=== PATIENT | female | born 2000 | race Caucasian/White ===

== ENCOUNTER 2022-09-30 09:48 | Observation (INO) ==
[2022-09-30] MEDS ORDERED: SODIUM CHLORIDE 0.9% 1000ML 1,000 ML IV SCH (10:00)
[2022-09-30] MEDS ORDERED: ONDANSETRON INJ 2 MG/ML 2 ML VIAL IV STA (10:46)
[2022-09-30] MEDS ORDERED: ACETAMINOPHEN 500 MG TAB PO STA (10:46)
--- NOTE | 2022-09-30 10:46 | Emergency Department Note ---
Impression & Plan Syncope and collapse, Nausea, Vertigo ED Provider Note INFORMANT: Patient ED PROVIDER(S): Matthew Levine MD CHIEF COMPLAINT: Syncope PLAN: Disposition: Admitted Condition: Good Outpatient prescription management: none Referral: None MEDICAL DECISION MAKING: Patient presented because of multiple syncopal episodes. She had a prodrome prior to the first 1. She did strike her head. Patient notes that dizziness/vertigo started after. Patient had a moderate headache. She had no open wounds. She suffered no other significant injury. Benign C-spine examination. Patient's neurologic examination did not reveal any focal findings. She had some slight lateral nystagmus but no vertical or rotatory nystagmus. Patient was hydrated. She was given Tylenol and Zofran. She did feel better with this. Nausea resolved. Patient was still having problems with dizziness. CT imaging of the head was negative. She was treated with meclizine and then treated with diazepam. She was still feeling dizziness at that time I discussed further imaging. Patient underwent MR imaging which did not reveal any evidence of acute stroke or other abnormality. Patient was given a dose of lorazepam as she was still feeling quite dizzy. Despite receiving that medication she was still unsteady and could not safely ambulate. Despite multiple hours in the ER and reassessments patient is still symptomatic. It seems that she may have a concussion from her syncopal episode and is now dealing with vertigo. Further management in the hospital will be necessary. Consultation was made with the [facility] service. Discussed the case with Dr. Martinez. Patient was evaluated in the ER and admitted for further management Discussed with assistant front end manager After review of the information above and other included data, I feel the patient requires admission. Triage Nursing notes reviewed and agree them. Vital Signs: reviewed and remarkable for no significant abnormalities. Orthostatic testing negative. Prior /Outside records reviewed: none Differential diagnosis: Vasovagal event, dehydration, infection, hypoglycemia, electrolyte a bnormalities, cardiac sources, intracerebral event, pulmonary embolism, seizure, toxicologic, neurologic, as well as other pathologies. Diagnostics, as interpreted by me: EC Lead ECG performed and revealed Normal sinus rhythm at 64, normal [place], QRS low voltage. No elevation or depression. No PACs or PVCs Cardiac Monitoring: Cardiac monitoring ordered by me: The patient was placed on continuous cardiac monitoring and observed. It revealed a normal sinus rhythm at 88 beats per minute without ectopy or evidence of dysrhythmia. Medical decision rules: none Imaging studies: CT and MRI as noted above. I refer you to the EMR for further details. HPI: The patient is a 22 year old female who presents to the Emergency Room with complaints of passing out. This started this morning and is described as three episodes. Patient did have feelings of dizziness and flushed. The patient also notes the following associated symptoms, sore throat. The patient has taken no medication for relieving factors. Current pain is rated as 7/10. Patient did hit her head when she passed out. Pt denies prior headache, fevers, chills, diaphoresis, visual changes, neck pain, chest pain, breathing difficulties, nausea, vomiting, abdominal pain, back pain, melena, hematochezia, urinary symptoms, numbness, weakness, lymphadenopathy, rash, or other complaints. PAST MEDICAL HISTORY: See Below, denies PAST SURGICAL HISTORY: See Below, denies SOCIAL HISTORY: See Below, occasional ETOH HOME MEDICATIONS: See Below ALLERGIES: See Below VITALS: See Below PHYSICAL EXAMINATION: GENERAL: Awake, alert, well-appearing, in no distress HENT: Normocephalic, atraumatic. Oropharynx unremarkable. EYES: Normal conjunctiva. Sclera non-icteric. PERRL. NECK: Inspection normal. Non-tender. Supple. No nuchal rigidity. FROM. No masses. RESPIRATORY: Clear to auscultation. No wheezes. No rales. Normal respiratory effort. CARDIAC: Normal rate. Normal rhythm. No murmurs. No rubs. Extremities warm and well perfused. Pulses equal. No JVD. GI: Soft, non-distended. No tenderness to palpation. No rebound or guarding. No masses. RECTAL: Deferred. MUSCULOSKELETAL: Atraumatic. Chest examination reveals no tenderness. The back is symmetrical on inspection without obvious abnormality. There is no CVA tenderness to palpation. No joint edema. LOWER EXTREMITIES: Calves are equal size bilaterally and non-tender. No edema. No discoloration. NEURO: Normal sensorium. No sensory or motor deficits noted. SKIN: No rash or jaundice noted. OBSERVATION NOTE: The patient was placed in observation status at 1400 hrs. Reason: Vertigo, head injury and syncope. During the time in observation, the patient was frequently reassessed and received cardiac monitoring, IV and oral medications. On Final reassessment the patient is still symptomatic and cannot ambulate safely. Further management in the hospital will be necessary. The patient will be admit franco at 1745. A total observation time of 3 hours and 45 minutes . Past Med/Surg History Social History Smoking Status: Never smoker Preferred Language: Cameroonian Feels Safe at Home: Yes Allergies Allergies Allergy/AdvReac Type Severity Reaction Status Date / Time No Known Allergies Allergy Verified 09/30/22 15:49 Home Meds Home Medications Medication Instructions Recorded Confirmed No Known Home Medications 09/30/22 09/30/22 Results & Data (ED) Vital Signs Vital Signs - 24 hr 09/30/22 09:52 09/30/22 10:12 09/30/22 10:40 Temperature 36.6 C Temperature Source Temporal Artery Scan Pulse Rate - Lying Pulse Rate - Sitting Pulse Rate - Standing Pulse Rate 84 66 Pulse Rate [Left Finger] 71 Pulse Rate from SpO2 Sensor Pulse Rhythm [Left Finger] Regular Respiratory Rate 18 16 Respiratory Effort / Characteristics Non-Labored Spontaneous Non-Labored Labored Respiratory Depth Normal Normal Respiratory Pattern Regular Blood Pressure - Lying Blood Pressure - Sitting Blood Pressure- Standing Blood Pressure 133/96 Blood Pressure [Right Arm] 128/74 Blood Pressure Mean 108 Blood Pressure Mean [Right Arm] 92 Blood Pressure Position Sitting Blood Pressure Position [Right Arm] Lying Pulse Oximetry 97 100 Oxygen Delivery Method Room Air Room Air Sepsis Recent Fever Within 48 Hours No Sepsis New/Unexplained Change in Mental Status No Sepsis Action Taken by Nursing No Action Required 09/30/22 10:40 09/30/22 10:04 09/30/22 10:05 Temperature Temperature Source Pulse Rate - Lying 71 Pulse Rate - Sitting 75 Pulse Rate - Standing 80 Pulse Rate 73 Pulse Rate [Left Finger] Pulse Rate from SpO2 Sensor 69 Pulse Rhythm [Left Finger] Respiratory Rate 15 Respiratory Effort / Characteristics Respiratory Depth Respiratory Pattern Blood Pressure - Lying 128/74 Blood Pressure - Sitting 121/93 Blood Pressure- Standing 130/87 Blood Pressure 119/75 Blood Pressure [Right Arm] Blood Pressure Mean 89 Blood Pressure Mean [Right Arm] Blood Pressure Position Blood Pressure Position [Right Arm] Pulse Oximetry 99 Oxygen Delivery Method Sepsis Recent Fever Within 48 Hours Sepsis New/Unexplained Change in Mental Status Sepsis Action Taken by Nursing 09/30/22 10:30 09/30/22 10:35 09/30/22 10:35 Temperature Temperature Source Pulse Rate - Lying Pulse Rate - Sitting Pulse Rate - Standing Pulse Rate 76 100 H Pulse Rate [Left Finger] Pulse Rate from SpO2 Sensor Pulse Rhythm [Left Finger] Respiratory Rate 17 18 Respiratory Effort / Characteristics Respiratory Depth Respiratory Pattern Blood Pressure - Lying Blood Pressure - Sitting Blood Pressure- Standing Blood Pressure 128/74 Blood Pressure [Right Arm] Blood Pressure Mean 95 Blood Pressure Mean [Right Arm] Blood Pressure Position Blood Pressure Position [Right Arm] Pulse Oximetry 98 Oxygen Delivery Method Sepsis Recent Fever Within 48 Hours Sepsis New/Unexplained Change in Mental Status Sepsis Action Taken by Nursing 09/30/22 10:36 09/30/22 10:36 09/30/22 11:29 Temperature Temperature Source Pulse Rate - Lying Pulse Rate - Sitting Pulse Rate - Standing Pulse Rate 63 Pulse Rate [Left Finger] Pulse Rate from SpO2 Sensor 67 Pulse Rhythm [Left Finger] Respiratory Rate 19 Respiratory Effort / Characteristics Respiratory Depth Respiratory Pattern Blood Pressure - Lying Blood Pressure - Sitting Blood Pressure- Standing Blood Pressure 130/87 125/75 Blood Pressure [Right Arm] Blood Pressure Mean 99 92 Blood Pressure Mean [Right Arm] Blood Pressure Position Blood Pressure Position [Right Arm] Pulse Oximetry 100 Oxygen Delivery Method Sepsis Recent Fever Within 48 Hours Sepsis New/Unexplained Change in Mental Status Sepsis Action Taken by Nursing 09/30/22 11:29 09/30/22 11:30 09/30/22 12:00 Temperature Temperature Source Pulse Rate - Lying Pulse Rate - Sitting Pulse Rate - Standing Pulse Rate 65 67 Pulse Rate [Left Finger] Pulse Rate from SpO2 Sensor 65 67 Pulse Rhythm [Left Finger] Respiratory Rate 15 13 Respiratory Effort / Characteristics Respiratory Depth Respiratory Pattern Blood Pressure - Lying Blood Pressure - Sitting Blood Pressure- Standing Blood Pressure 121/74 Blood Pressure [Right Arm] Blood Pressure Mean 82 Blood Pressure Mean [Right Arm] Blood Pressure Position Blood Pressure Position [Right Arm] Pulse Oximetry 100 100 Oxygen Delivery Method Sepsis Recent Fever Within 48 Hours Sepsis New/Unexplained Change in Mental Status Sepsis Action Taken by Nursing 09/30/22 12:00 09/30/22 14:13 09/30/22 14:00 Temperature Temperature Source Pulse Rate - Lying Pulse Rate - Sitting Pulse Rate - Standing Pulse Rate 76 72 Pulse Rate [Left Finger] 88 Pulse Rate from SpO2 Sensor 72 Pulse Rhythm [Left Finger] Respiratory Rate 22 18 Respiratory Effort / Characteristics Respiratory Depth Respiratory Pattern Blood Pressure - Lying Blood Pressure - Sitting Blood Pressure- Standing Blood Pressure Blood Pressure [Right Arm] 118/68 Blood Pressure Mean Blood Pressure Mean [Right Arm] 84 Blood Pressure Position Blood Pressure Position [Right Arm] Pulse Oximetry 100 98 Oxygen Delivery Method Room Air Sepsis Recent Fever Within 48 Hours Sepsis New/Unexplained Change in Mental Status Sepsis Action Taken by Nursing 09/30/22 15:49 Temperature Temperature Source Pulse Rate - Lying Pulse Rate - Sitting Pulse Rate - Standing Pulse Rate Pulse Rate [Left Finger] 88 Pulse Rate from SpO2 Sensor Pulse Rhythm [Left Finger] Respiratory Rate 14 Respiratory Effort / Characteristics Respiratory Depth Respiratory Pattern Blood Pressure - Lying Blood Pressure - Sitting Blood Pressure- Standing Blood Pressure Blood Pressure [Right Arm] 116/69 Blood Pressure Mean Blood Pressure Mean [Right Arm] 84 Blood Pressure Position Blood Pressure Position [Right Arm] Pulse Oximetry 100 Oxygen Delivery Method Room Air Sepsis Recent Fever Within 48 Hours Sepsis New/Unexplained Change in Mental Status Sepsis Action Taken by Nursing Laboratory Data 09/30/22 10:20 09/30/22 10:20 Lab Results 09/30/22 09/30/22 09/30/22 Range/Units 10:20 10:20 10:20 WBC 8.24 (4.8-10.8) K/ul RBC 4.94 (4.20-5.40) M/uL Hgb 15.2 (12.0-16.0) g/dl Hct 44.3 (37.0-47.0) % MCV 89.7 (80.0-100.0) fL MCH 30.8 (25.0-34.0) pg MCHC 34.3 (32.0-36.0) g/dL RDW Std Deviation 39.6 (36.4-46.3) fL RDW Coeff of Evangelista 12.1 (11.5-14.5) % Plt Count 200 (130-400) K/uL MPV 10.5 (9.4-12.4) fL Immature Gran % (Auto) 0.2 % Neut % (Auto) 70.7 % Lymph % (Auto) 22.8 % [place] % (Auto) 5.3 % Eos % (Auto) 0.5 % Baso % (Auto) 0.5 % Neut # (Auto) 5.82 (1.40-6.50) K/uL Lymph # (Auto) 1.88 (1.2-3.4) K/uL [place] # (Auto) 0.44 (0.11-0.59) K/uL Eos # (Auto) 0.04 (0-0.50) K/uL Baso # (Auto) 0.04 (0-0.2) K/uL Immature Gran # (Auto) 0.02 (0.01-0.20) K/uL D-Dimer Cancelled Sodium 138 (136-145) mmol/L Potassium 4.1 (3.5-5.1) mmol/L Chloride 106 (98-107) mmol/L Carbon Dioxide 26 (21-32) mmol/L Anion Gap 6 (3-11) BUN 25 H (6-23) mg/dl Creatinine 0.89 (0.6-1.2) mg/dl Est Cr Clr Drug Dosing 95.6 ml/min Est GFR ( Amer) 105.1 ml/min Est GFR (Non-Af Amer) 90.7 ml/min BUN/Creatinine Ratio 28.1 H (10-20) Glucose 81 (70-99(Fasting)) mg/dl Calcium 9.7 (8.6-10.3) mg/dl Magnesium 2.0 (1.7-2.4) mg/dl Total Bilirubin 0.8 (0.2-1.0) mg/dl AST 16 (13-39) U/L ALT 15 (7-52) U/L Alkaline Phosphatase 59 (34-104) U/L Troponin I High Sens < 2.3 (0-14) pg/ml Total Protein 8.2 (6.0-8.3) gm/dl Albumin 5.1 H (3.4-5.0) gm/dl Globulin 3.1 (2.5-4.0) gm/dl Albumin/Globulin Ratio 1.6 (0.9-2) TSH (0.300-4.500) uIu/ml HCG, Qual (Negative) Urine Color Urine Appearance (Clear) Urine pH (4.5-7.5) Ur Specific [place] (1.000-1.030) Urine Protein (Negative) Urine Glucose (UA) (Negative) Urine Ketones (Negative) Urine Blood (Negative) Urine Nitrite (Negative) Urine Bilirubin (Negative) Urine Urobilinogen (Negative) Ur Leukocyte Esterase (Negative) SARS-CoV-2, RNA, NAAT (NEGATIVE) 09/30/22 09/30/2223 Range/Units 10:20 10:20 10:20 WBC (4.8-10.8) K/ul RBC (4.20-5.40) M/uL Hgb (12.0-16.0) g/dl Hct (37.0-47.0) % MCV (80.0-100.0) fL MCH (25.0-34.0) pg MCHC (32.0-36.0) g/dL RDW Std Deviation (36.4-46.3) fL RDW Coeff of Evangelista (11.5-14.5) % Plt Count (130-400) K/uL MPV (9.4-12.4) fL Immature Gran % (Auto) % Neut % (Auto) % Lymph % (Auto) % [place] % (Auto) % Eos % (Auto) % Baso % (Auto) % Neut # (Auto) (1.40-6.50) K/uL Lymph # (Auto) (1.2-3.4) K/uL [place] # (Auto) (0.11-0.59) K/uL Eos # (Auto) (0-0.50) K/uL Baso # (Auto) (0-0.2) K/uL Immature Gran # (Auto) (0.01-0.20) K/uL D-Dimer Sodium (136-145) mmol/L Potassium (3.5-5.1) mmol/L Chloride (98-107) mmol/L Carbon Dioxide (21-32) mmol/L Anion Gap (3-11) BUN (6-23) mg/dl Creatinine (0.6-1.2) mg/dl Est Cr Clr Drug Dosing ml/min Est GFR ( Amer) ml/min Est GFR (Non-Af Amer) ml/min BUN/Creatinine Ratio (10-20) Glucose (70-99(Fasting)) mg/dl Calcium (8.6-10.3) mg/dl Magnesium (1.7-2.4) mg/dl Total Bilirubin (0.2-1.0) mg/dl AST (13-39) U/L ALT (7-52) U/L Alkaline Phosphatase (34-104) U/L Troponin I High Sens (0-14) pg/ml Total Protein (6.0-8.3) gm/dl Albumin (3.4-5.0) gm/dl Globulin (2.5-4.0) gm/dl Albumin/Globulin Ratio (0.9-2) TSH 3.309 (0.300-4.500) uIu/ml HCG, Qual Negative (Negative) Urine Color Yellow Urine Appearance Clear (Clear) Urine pH 5.5 (4.5-7.5) Ur Specific [place] 1.015 (1.000-1.030) Urine Protein Negative (Negative) Urine Glucose (UA) Negative (Negative) Urine Ketones Negative (Negative) Urine Blood Negative (Negative) Urine Nitrite Negative (Negative) Urine Bilirubin Negative (Negative) Urine Urobilinogen Negative (Negative) Ur Leukocyte Esterase Negative (Negative) SARS-CoV-2, RNA, NAAT (NEGATIVE) 09/30/22 09/30/22 Range/Units 11:48 17:18 WBC (4.8-10.8) K/ul RBC (4.20-5.40) M/uL Hgb (12.0-16.0) g/dl Hct (37.0-47.0) % MCV (80.0-100.0) fL MCH (25.0-34.0) pg MCHC (32.0-36.0) g/dL RDW Std Deviation (36.4-46.3) fL RDW Coeff of Evangelista (11.5-14.5) % Plt Count (130-400) K/uL MPV (9.4-12.4) fL Immature Gran % (Auto) % Neut % (Auto) % Lymph % (Auto) % [place] % (Auto) % Eos % (Auto) % Baso % (Auto) % Neut # (Auto) (1.40-6.50) K/uL Lymph # (Auto) (1.2-3.4) K/uL [place] # (Auto) (0.11-0.59) K/uL Eos # (Auto) (0-0.50) K/uL Baso # (Auto) (0-0.2) K/uL Immature Gran # (Auto) (0.01-0.20) K/uL D-Dimer 260 Sodium (136-145) mmol/L Potassium (3.5-5.1) mmol/L Chloride (98-107) mmol/L Carbon Dioxide (21-32) mmol/L Anion Gap (3-11) BUN (6-23) mg/dl Creatinine (0.6-1.2) mg/dl Est Cr Clr Drug Dosing ml/min Est GFR ( Amer) ml/min Est GFR (Non-Af Amer) ml/min BUN/Creatinine Ratio (10-20) Glucose (70-99(Fasting)) mg/dl Calcium (8.6-10.3) mg/dl Magnesium (1.7-2.4) mg/dl Total Bilirubin (0.2-1.0) mg/dl AST (13-39) U/L ALT (7-52) U/L Alkaline Phosphatase (34-104) U/L Troponin I High Sens (0-14) pg/ml Total Protein (6.0-8.3) gm/dl Albumin (3.4-5.0) gm/dl Globulin (2.5-4.0) gm/dl Albumin/Globulin Ratio (0.9-2) TSH (0.300-4.500) uIu/ml HCG, Qual (Negative) Urine Color Urine Appearance (Clear) Urine pH (4.5-7.5) Ur Specific [place] (1.000-1.030) Urine Protein (Negative) Urine Glucose (UA) (Negative) Urine Ketones (Negative) Urine Blood (Negative) Urine Nitrite (Negative) Urine Bilirubin (Negative) Urine Urobilinogen (Negative) Ur Leukocyte Esterase (Negative) SARS-CoV-2, RNA, NAAT NEGATIVE (NEGATIVE) Administered Medications Discontinued Medications Acetaminophen (Acetaminophen 500 Mg Tab) 1,000 mg PO NOW STA Stop: 09/30/22 10:47 Last Admin: 09/30/22 10:54 Dose: 1,000 mg Documented By: ABEL Diazepam (Diazepam 5 Mg/Ml Inj 10ml Vial) 2.5 mg IV NOW STA Stop: 09/30/22 14:09 Last Admin: 09/30/22 14:19 Dose: 2.5 mg Documented By: ABEL Sodium Chloride (Nss 1000ml) 1,000 mls @ 999 mls/hr IV .Q1H1M KENDRA Stop: 09/30/22 11:00 Last Infusion: 09/30/22 11:28 Dose: 0 mls/hr Documented By: Admin: 09/30/22 10:23 Dose: 999 mls/hr Documented By: ABEL Lorazepam (Lorazepam 2 Mg/1 Ml Vial) 0.5 mg IV NOW STA Stop: 09/30/22 16:02 Last Admin: 09/30/22 16:09 Dose: 0.5 mg Documented By: Meclizine HCl (Meclizine Hcl 25 Mg Tab) 25 mg PO NOW STA Stop: 09/30/22 13:45 Last Admin: 09/30/22 14:19 Dose: 25 mg Documented By: ABEL Ondansetron HCl (Ondansetron Inj 2 Mg/Ml 2 Ml Vial) 4 mg IV NOW STA Stop: 09/30/22 10:47 Last Admin: 09/30/22 10:54 Dose: 4 mg Documented By: ABEL Imaging Data Radiologist's Impression: Head CT 09/30/22 10:[address] DOSE: 547.75 mGy.cm HISTORY: Posterior head injury. fall, CHI, Syncope TECHNIQUE: Multiaxial CT images of the head were performed without the use of intravenous contrast. Automated exposure control was utilized for this study. A dose lowering technique was utilized adhering to the principles of ALARA. Comparison: None. Findings: The paranasal sinuses and mastoid air cells are clear. The calvarium and skull base are intact. The ventricles and sulci are within normal limits. There is no mass, hematoma, midline shift, or acute infarct. Impression: No acute intracranial abnormality. ACT 112: Negative or not required by law. Electronically signed by: Duc Corcoran M.D. 09/30/2022 11:16 AM Brain MRI 09/30/22 13:44 MRI OF THE BRAIN WITHOUT CONTRAST CLINICAL HISTORY: Syncope. Severe vertigo. COMPARISON STUDY: Head CT performed earlier today. TECHNIQUE: Utilizing a 1.5 Nicole magnet and dedicated coil, multiplanar, multiecho imaging of the brain was performed without IV contrast. FINDINGS: This study is mildly compromised by motion artifact. No acute intracranial hemorrhage, midline shift or mass effect is present. Ventricular system is normal. Basal cisterns are patent. There are no extraaxial collections. Flow-voids for the major intracranial vessels are present. Diffusion-weighted sequence is compromised by motion artifact however there are no foci of restricted diffusion to suggest acute infarct. The basal cisterns are patent. There are no extra-axial collections. No intracranial masses are identified on this unenhanced exam. No definite parenchymal signal abnormality is present. IMPRESSION: Exam mildly compromised by motion artifact. No acute intracranial findings. Unremarkable unenhanced MRI of the brain. ACT 112: Negative or not required by law. Electronically signed by: Willis Downing M.D. 09/30/2022 3:53 PM Discharge Plan Visit Data Chief Complaint: Syncope Stated Complaint: SINCE 730 PASSOUT 3 TIMES, CHEST TIGHTNESS ED Provider: Matthew Levine Discharge Problem: Syncope and collapse, Nausea, Vertigo Forms Stand Alone Forms: [employer] [facility] Prescriptions Prescriptions: No Action No Known Home Medications Referrals Referrals: PCP,NO [Primary Care Provider] -
[2022-09-30 10:57] LABS: Appearance Urine Clear (Clear); Bilirubin Urine Negative (Negative); Blood Urine Negative (Negative); Color Urine Yellow; Glucose Urine UA Negative (Negative); Ketones Urine Negative (Negative); Leukocyte Esterase Urine Negative (Negative); Nitrite Urine Negative (Negative); Protein Urine Negative (Negative); Specific Gravity Urine 1.015 (1.000-1.030); Urobilinogen Urine Negative (Negative); pH Urine 5.5 (4.5-7.5)
[2022-09-30 11:06] LABS: Basophils # (auto) 0.04 K/uL (0-0.2); Basophils % (auto) 0.5 %; Eosinophils # (auto) 0.04 K/uL (0-0.50); Eosinophils % (auto) 0.5 %; Hematocrit (blood only) 44.3 % (37.0-47.0); Hemoglobin 15.2 g/dl (12.0-16.0); Immature Granulocytes # (auto) 0.02 K/uL (0.01-0.20); Immature Granulocytes % (auto) 0.2 %; Lymphocytes # (auto) 1.88 K/uL (1.2-3.4); Lymphocytes % (auto) 22.8 %; Mean Corpuscular Hemoglobin 30.8 pg (25.0-34.0); Mean Corpuscular Hgb Conc 34.3 g/dL (32.0-36.0); Mean Corpuscular Volume 89.7 fL (80.0-100.0); Mean Platelet Volume 10.5 fL (9.4-12.4); Monocytes # (auto) 0.44 K/uL (0.11-0.59); Monocytes % (auto) 5.3 %; Neutrophils # (auto) 5.82 K/uL (1.40-6.50); Neutrophils % (auto) 70.7 %; Platelet Count 200 K/uL (130-400); RDW Coefficient of Variation 12.1 % (11.5-14.5); RDW Standard Deviation 39.6 fL (36.4-46.3); Red Blood Count 4.94 M/uL (4.20-5.40); White Blood Count 8.24 K/ul (4.8-10.8)
[2022-09-30 11:13] LABS: Pregnancy Test, Serum Negative (Negative)
[2022-09-30 11:14] LABS: Alanine Aminotransferase 15 U/L (7-52); Albumin Globulin Ratio 1.6 (0.9-2); Albumin Level 5.1 gm/dl (3.4-5.0); Alkaline Phosphatase 59 U/L (34-104); Anion Gap 6 (3-11); Aspartate Aminotransferase 16 U/L (13-39); BUN Creatinine Ratio 28.1 (10-20); Bilirubin,Total 0.8 mg/dl (0.2-1.0); Blood Urea Nitrogen 25 mg/dl (6-23); Calcium 9.7 mg/dl (8.6-10.3); Carbon Dioxide 26 mmol/L (21-32); Chloride 106 mmol/L (98-107); Creatinine Clr Calc Pharmacy 95.6 ml/min; Est GFR (African American) 105.1 ml/min; Est GFR (Non-African American) 90.7 ml/min; Globulin 3.1 gm/dl (2.5-4.0); Glucose 81 mg/dl (70-99(Fasting)); Potassium 4.1 mmol/L (3.5-5.1); Sodium 138 mmol/L (136-145); Total Protein 8.2 gm/dl (6.0-8.3)
[2022-09-30 11:19] LABS: Troponin I High Sensitivity < 2.3 pg/ml (0-14)
--- NOTE | 2022-09-30 11:19 | CT Scan Report ---
HEAD CT NONCONTRAST CT DOSE: 547.75 mGy.cm HISTORY: Posterior head injury. fall, CHI, Syncope TECHNIQUE: Multiaxial CT images of the head were performed without the use of intravenous contrast. A utomated exposure control was utilized for this study. A dose lowering technique was utilized adheri ng to the principles of ALARA. Comparison: None. Findings: The paranasal sinuses and mastoid air cells are clear. The calvarium and skull base are int act. The ventricles and sulci are within normal limits. There is no mass, hematoma, midline shift, or acute infarct. Impression: No acute intracranial abnormality. ACT 112: Negative or not required by law. Electronically signed by: Duc Corcoran M.D. 09/30/2022 11:16 AM
[2022-09-30 12:29] LABS: D Dimer 260 ug/L FEU (0-500)
[2022-09-30] MEDS ORDERED: MECLIZINE HCL 25 MG TAB PO STA (13:44)
--- NOTE | 2022-09-30 15:55 | Magnetic Resonance Report ---
MRI OF THE BRAIN WITHOUT CONTRAST CLINICAL HISTORY: Syncope. Severe vertigo. COMPARISON STUDY: Head CT performed earlier today. TECHNIQUE: Utilizing a 1.5 Nicole magnet and dedicated coil, multiplanar, multiecho imaging of the bra in was performed without IV contrast. FINDINGS: This study is mildly compromised by motion artifact. No acute intracranial hemorrhage, midl ine shift or mass effect is present. Ventricular system is normal. Basal cisterns are patent. There a re no extraaxial collections. Flow-voids for the major intracranial vessels are present. Diffusion-we ighted sequence is compromised by motion artifact however there are no foci of restricted diffusion t o suggest acute infarct. The basal cisterns are patent. There are no extra-axial collections. No intr acranial masses are identified on this unenhanced exam. No definite parenchymal signal abnormality is present. IMPRESSION: Exam mildly compromised by motion artifact. No acute intracranial findings. Unremarkable unenhanced MRI of the brain. ACT 112: Negative or not required by law. Electronically signed by: Willis Downing M.D. 09/30/2022 3:53 PM
[2022-09-30] MEDS ORDERED: LORazepam 2 MG/1 ML VIAL IV STA (16:01)
--- NOTE | 2022-09-30 19:07 | History & Physical Report ---
Date of Service September 30, 2022 Assessment & Plan (1) Syncope and collapse: Plan: The patient had a cluster of 3 brief episodes of syncope this am over a short period of time (~ 1 hour). Each episode had prodromal symptoms including dizziness, lightheadedness, and feeling weak. There was no seizure activity by report. Following each episode she had return of consciousness quickly. BUN on labs is elevated suggestive of volume depletion. She has a likely URI which may have compounded the circumstances. However, it is concerning that the patient has had chest tightness during aerobic activities in the past. Further, the patient's mother suddenly at age 36 and her autopsy suggested she from arrhythmia. Apparently her mother had had episodes of syncope before her sudden cardiac . Lorin reports that she was told in [place], [place], that her mother's arrhythmia was not hereditary in nature. Lorin and her 2 brothers received testing every ~2 years to monitor her cardiac status. She cannot remember if she ever had an echo earlier in life. Plan - * repeat EKG in am * telemetry * hydrate with isotonic fluids overnight * echocardiogram * consider cardiology consultation Fortunately Lorin's EKG shows normal QTc. She does have an inverted T wave in V2 but this may represent normal variation. Consider outpatient cardiac monitoring due to her mother's history? (2) Head injury: Plan: Following her first syncopal event Lorin struck her head on a desk. The impact was over the occiput. She has had tunnel vision, ataxia, vertigo, and nausea since the head injury. Symptoms are likely consistent with a concussion. Advise private room, plenty of rest, copious hydration, avoid loud noise and bright lights, restrict reading/TV/any device, etc. Fortunately both her head CT and MRI brain are both normal. Tylenol prn pain. Meclizine for vertigo. Could consider MRA head & Neck to r/o aneurysm, etc in light of syncope to be complete. (3) Acute onset of severe vertigo: Plan: Occurred after her head injury this am. Likely due to a concussion/TBI. Doubt viral induced peripheral vertigo. Schedule meclizine 12.5mg TID. Consider PT consultation tomorrow depending on how she is doing. (4) URI (upper respiratory infection): Plan: 24 hours of URI symptoms. Repeated a COVID/flu/RSV - fully negative. Symptomatic care. (5) Ataxia: Plan: 2nd to head injury. Fall precautions. Consider PT consultation. MRI brain and head CT without acute pathology, stroke, etc. (6) Concussion: Plan: s/p head injury early this am with multiple neurological symptoms since that time. See discussion above. (7) Family history of early sudden : Plan: Mother, age 36 from arrhythmia based on autopsy. Maternal uncle had a pacemaker and in his 40s - also suspected to be cardiac in nature. See discussion above. Echocardiogram ordered. EKG in am. Telemetry. Consider exercise stress test in future? Consider cardiology consultation. History of Present Illness Chief Complaint: passing out, head injury, difficulty walking Primary Care Provider: NO PCP 22yo female with history of asthma presents from her home in [place] with multiple episodes of passing out. Patient reports that yesterday she noted she had mild sore throat, nasal congestion, and chills. 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 She reports she was sitting in a chair and suddenly felt unwell. A co-worker noticed she did not look good and she told her co-worker she felt dizzy and lightheaded. Lorin stood up, continued to feel dizzy/lightheaded, and passed out for a few seconds. During that event she hit her head on the desk at which she was sitting. She hit the back of her head. This event took place about 730am today. After the first syncopal episode she had nausea, she had "tunnel vision," and felt unsteady. A co-worker drove her home. About 815 she had a 2nd syncopal episode. Again she felt dizzy & lightheaded and proceeded to pass out. She woke up on the floor of her apartment. She then had a 3rd syncopal episode about 10 minutes later. Prior to the 3rd event she had prodromal dizziness. At home she developed vertigo with movements. Denies having any visual field cut. Denies any blurry vision. She has had a headache. After the 3rd episode a friend brought her to [facility] for evaluation. Orthostatic BPs were wnl here. Last meal - breakfast before work this am; a hamburger about 2 hours prior to my assessment. Per the emergency room attending attempts were made to have Lorin walk and she had significant ataxia. She states she felt like she was going to fall to her left. She continues with vertigo with any movement although this is a little better since receiving the meds as listed below. 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 Allergies Allergy/AdvReac Type Severity Reaction Status Date / Time No Known Allergies Allergy Verified 09/30/22 15:49 Home Medications Medication Instructions Recorded Confirmed Type No Known Home Medications 09/30/22 09/30/22 History Past Med/Surg History Medical History (Updated 09/30/22 @ 22:21 by Gómez Martinez MD) Achilles tendon injury large cut to the achilles requiring surgery; right side Asthma Surgical History (Updated 09/30/22 @ 22:10 by Gómez Martinez MD) Hx of external ear surgery pinning / repositioning b/l ears Family History (Updated 09/30/22 @ 22:13 by Gómez Martinez MD) Mother , age 36; autopsy suggested arrhythmia as cause of Sudden cardiac Uncle , Maternal uncle; age 45; had pacemaker, then from arrhythmia? 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 Feels Safe at Home: Yes Safety Concerns: Feels Safe At This Time Do you think of yourself as: straight/heterosexual Sexual Activity: has been sexually active within the last 12 months Assistive Devices: None Review of Systems Review of Systems: gen - no fevers; chills yesterday; poor appetite today; no recent weight loss eyes - "tunnel vision" following her head injury; no blurry vision; no visual field cuts HENT - sore throat with nasal congestion x 24 hours neck - denies pain; has pain on back of head where she hit her head CV - patient reports having chest tightness with swimming in college; was told it was due to anxiety?; no echocardiogram in college to her recollection; after her mother suddenly at age 36 from arrhythmia she & her 2 brothers were monitored every 2 years --- may have had echo then?? was told her mother's arrhythmia was not hereditary; has never passed out during exercise pulm - no dyspnea or GANDHI; no cough GI - nausea today following her head injury; no abd pain - LMP 3 weeks ago; no dysuria musculo - no body aches, no joint pains skin - no rash neuro - headache present since the head injury; no numbness or tingling of any limb; no motor weakness of any limb; ataxia since her head injury psych - some depression and anxiety Physical Exam Physical Exam: gen - lying comfortably in bed, awake, alert, good historian eyes - PERRLA, EOMI, 2 beats of lateral nystagmus with right-wood gaze; +photophobia head - modestly tender to palpation posterior occiput, mostly left of midline HENT - TMs clear b/l, nose clear, throat with mild erythema; MM dry neck - supple, shottly lymphadenopathy on left cervical region, no thyroidmegaly heart - RRR, s1 s2, no murmur/rub/gallop vascular - radial pulse 2+ b/l; DP and post tib pulses 2+ b/l lungs - CTA b/l abd - soft NT ND BS+; no HSM ext - no edema, pulses 2+ b/l neuro - strength 5/5 x 4 exts; CN 3-12 intact; DTRs 2+ b/l upper/lower exts; finger/nose/finger maneuver without ataxia; heel-ontiveros maneuver with mild ataxia; gait not tested skin - no rash psych - a/o x 3 Results & Data Results & Data Vital Signs (Past 12 Hours) Vital Signs Temp Pulse Pulse Resp BP BP Pulse Ox 09/30/22 15:49 88 14 116/69 100 09/30/22 14:00 88 18 118/68 98 09/30/22 14:13 72 09/30/22 12:00 76 22 100 09/30/22 12:00 121/74 09/30/22 11:30 67 13 100 09/30/22 11:29 65 15 100 09/30/22 11:29 125/75 09/30/22 10:36 63 19 100 09/30/22 10:36 130/87 09/30/22 10:35 100 H 18 98 09/30/22 10:35 128/74 09/30/22 10:30 76 17 09/30/22 10:05 73 15 99 09/30/22 10:04 119/75 09/30/22 10:40 71 16 128/74 100 09/30/22 10:12 66 09/30/22 09:52 36.6 C 84 18 133/96 97 O2 Del Method 09/30/22 15:49 Room Air 09/30/22 14:00 Room Air 09/30/22 14:13 09/30/22 12:00 09/30/22 12:00 09/30/22 11:30 09/30/22 11:29 09/30/22 11:29 09/30/22 10:36 09/30/22 10:36 09/30/22 10:35 09/30/22 10:35 09/30/22 10:30 09/30/22 10:05 09/30/22 10:04 09/30/22 10:40 Room Air 09/30/22 10:12 09/30/22 09:52 Room Air Laboratory Results Laboratory Results - last 24 hr 09/30/22 09/30/22 09/30/22 10:20 10:20 10:20 WBC 8.24 RBC 4.94 Hgb 15.2 Hct 44.3 MCV 89.7 MCH 30.8 MCHC 34.3 RDW Std Deviation 39.6 RDW Coeff of Evangelista 12.1 Plt Count 200 MPV 10.5 Immature Gran % (Auto) 0.2 Neut % (Auto) 70.7 Lymph % (Auto) 22.8 Bell % (Auto) 5.3 Eos % (Auto) 0.5 Baso % (Auto) 0.5 Neut # (Auto) 5.82 Lymph # (Auto) 1.88 Bell # (Auto) 0.44 Eos # (Auto) 0.04 Baso # (Auto) 0.04 Immature Gran # (Auto) 0.02 D-Dimer Cancelled Sodium 138 Potassium 4.1 Chloride 106 Carbon Dioxide 26 Anion Gap 6 BUN 25 H Creatinine 0.89 Est Cr Clr Drug Dosing 95.6 Est GFR ( Amer) 105.1 Est GFR (Non-Af Amer) 90.7 BUN/Creatinine Ratio 28.1 H Glucose 81 Calcium 9.7 Magnesium 2.0 Total Bilirubin 0.8 AST 16 ALT 15 Alkaline Phosphatase 59 Troponin I High Sens < 2.3 Total Protein 8.2 Albumin 5.1 H Globulin 3.1 Albumin/Globulin Ratio 1.6 TSH HCG, Qual Urine Color Urine Appearance Urine pH Ur Specific [place] Urine Protein Urine Glucose (UA) Urine Ketones Urine Blood Urine Nitrite Urine Bilirubin Urine Urobilinogen Ur Leukocyte Esterase SARS-CoV-2 (PCR) Influenza Type A (PCR) Influenza Type B (PCR) RSV (RT-PCR) SARS-CoV-2, RNA, NAAT 09/30/22 09/30/22 09/30/22 10:20 10:20 10:20 WBC RBC Hgb Hct MCV MCH MCHC RDW Std Deviation RDW Coeff of Evangelista Plt Count MPV Immature Gran % (Auto) Neut % (Auto) Lymph % (Auto) Bell % (Auto) Eos % (Auto) Baso % (Auto) Neut # (Auto) Lymph # (Auto) Bell # (Auto) Eos # (Auto) Baso # (Auto) Immature Gran # (Auto) D-Dimer Sodium Potassium Chloride Carbon Dioxide Anion Gap BUN Creatinine Est Cr Clr Drug Dosing Est GFR ( Amer) Est GFR (Non-Af Amer) BUN/Creatinine Ratio Glucose Calcium Magnesium Total Bilirubin AST ALT Alkaline Phosphatase Troponin I High Sens Total Protein Albumin Globulin Albumin/Globulin Ratio TSH 3.309 HCG, Qual Negative Urine Color Yellow Urine Appearance Clear Urine pH 5.5 Ur Specific [place] 1.015 Urine Protein Negative Urine Glucose (UA) Negative Urine Ketones Negative Urine Blood Negative Urine Nitrite Negative Urine Bilirubin Negative Urine Urobilinogen Negative Ur Leukocyte Esterase Negative SARS-CoV-2 (PCR) Influenza Type A (PCR) Influenza Type B (PCR) RSV (RT-PCR) SARS-CoV-2, RNA, NAAT 09/30/22 09/30/22 09/30/22 11:48 17:18 19:27 WBC RBC Hgb Hct MCV MCH MCHC RDW Std Deviation RDW Coeff of Evangelista Plt Count MPV Immature Gran % (Auto) Neut % (Auto) Lymph % (Auto) Bell % (Auto) Eos % (Auto) Baso % (Auto) Neut # (Auto) Lymph # (Auto) Bell # (Auto) Eos # (Auto) Baso # (Auto) Immature Gran # (Auto) D-Dimer 260 Sodium Potassium Chloride Carbon Dioxide Anion Gap BUN Creatinine Est Cr Clr Drug Dosing Est GFR ( Amer) Est GFR (Non-Af Amer) BUN/Creatinine Ratio Glucose Calcium Magnesium Total Bilirubin AST ALT Alkaline Phosphatase Troponin I High Sens Total Protein Albumin Globulin Albumin/Globulin Ratio TSH HCG, Qual Urine Color Urine Appearance Urine pH Ur Specific [place] Urine Protein Urine Glucose (UA) Urine Ketones Urine Blood Urine Nitrite Urine Bilirubin Urine Urobilinogen Ur Leukocyte Esterase SARS-CoV-2 (PCR) NEGATIVE Influenza Type A (PCR) Negative Influenza Type B (PCR) Negative RSV (RT-PCR) Negative SARS-CoV-2, RNA, NAAT NEGATIVE Diagnostic Findings Head CT 09/30/22 10:[address] DOSE: 547.75 mGy.cm HISTORY: Posterior head injury. fall, CHI, Syncope TECHNIQUE: Multiaxial CT images of the head were performed without the use of intravenous contrast. Automated exposure control was utilized for this study. A dose lowering technique was utilized adhering to the principles of ALARA. Comparison: None. Findings: The paranasal sinuses and mastoid air cells are clear. The calvarium and skull base are intact. The ventricles and sulci are within normal limits. There is no mass, hematoma, midline shift, or acute infarct. Impression: No acute intracranial abnormality. ACT 112: Negative or not required by law. Electronically signed by: Duc Corcoran M.D. 09/30/2022 11:16 AM Brain MRI 09/30/22 13:44 MRI OF THE BRAIN WITHOUT CONTRAST CLINICAL HISTORY: Syncope. Severe vertigo. COMPARISON STUDY: Head CT performed earlier today. TECHNIQUE: Utilizing a 1.5 Nicole magnet and dedicated coil, multiplanar, multiecho imaging of the brain was performed without IV contrast. FINDINGS: This study is mildly compromised by motion artifact. No acute intracranial hemorrhage, midline shift or mass effect is present. Ventricular system is normal. Basal cisterns are patent. There are no extraaxial collections. Flow-voids for the major intracranial vessels are present. Diffusion-weighted sequence is compromised by motion artifact however there are no foci of restricted diffusion to suggest acute infarct. The basal cisterns are patent. There are no extra-axial collections. No intracranial masses are identified on this unenhanced exam. No definite parenchymal signal abnormality is present. IMPRESSION: Exam mildly compromised by motion artifact. No acute intracranial findings. Unremarkable unenhanced MRI of the brain. ACT 112: Negative or not required by law. Electronically signed by: Willis Downing M.D. 09/30/2022 3:53 PM EKG -- my reading -- NSR, T wave inversion V2; early repol limb leads and anterior leads; QTc ~410msec PG Care Time/CCT Total # of Minutes Spent Total Time Spent with Patient: Total time spent is greater than 50% in coordination of care (as documented) at patient's floor/unit and/or counseling patient: Coding Level of Care Code 08084 INT INP/OBS CARE 2/55MIN Diagnoses Syncope and collapse R55 Head injury S09.90XA Acute onset of severe vertigo R42 URI (upper respiratory infection) J06.9 Ataxia R27.0 Concussion S06.0XAA Family history of early sudden Z84.89
[2022-09-30 20:54] LABS: Influenza A virus by PCR Negative (Neg); Influenza B virus by PCR Negative (Neg); RSV by PCR Negative (Neg); SARS CoV2 RNA(COVID-19) Ceph NEGATIVE (Negative)
[2022-09-30] MEDS ORDERED: NAPROXEN 250 MG TAB PO PRN (21:06)
[2022-09-30] MEDS ORDERED: ONDANSETRON INJ 2 MG/ML 2 ML VIAL IV PRN (21:06)
[2022-09-30] MEDS: MECLIZINE 12.5 MG TAB PO SCH (21:34)
[2022-09-30] MEDS: ACETAMINOPHEN 500 MG TAB PO PRN (21:35)
[2022-09-30] MEDS: D5W AND NSS 1,000 ML IV SCH (21:36)
[2022-10-01 06:50] LABS: BUN Creatinine Ratio 20.7 (10-20); Calcium 8.5 mg/dl (8.6-10.3); Creatinine Clr Calc Pharmacy 103.7 ml/min; Est GFR (African American) 116.1 ml/min; Est GFR (Non-African American) 100.2 ml/min; Potassium 3.9 mmol/L (3.5-5.1)
[2022-10-01] MEDS: D5W AND NSS 1,000 ML IV SCH ×2 (07:43→18:39)
[2022-10-01] MEDS: MECLIZINE 12.5 MG TAB PO SCH ×3 (07:44→21:06)
--- NOTE | 2022-10-01 10:17 | XCELERA ---
[id number]
--- NOTE | 2022-10-01 10:32 | Electrocardiogram Report ---
Test Reason : Blood Pressure : / mmHG Vent. Rate : 055 BPM Atrial Rate : 055 BPM P-R Int : 128 ms QRS Dur : 088 ms QT Int : 434 ms P-R-T Axes : 076 053 057 degrees QTc Int : 415 ms Sinus bradycardia with sinus arrhythmia Otherwise normal ECG When compared with ECG of 30-SEP-2022 10:03, No significant change was found Confirmed by Chang Metz ([id number]) on 10/01/2022 10:31:35 AM Referred By: REFERRED SELF Confirmed By:Chang Metz
[2022-10-01] MEDS: ACETAMINOPHEN 500 MG TAB PO PRN (11:54)
[2022-10-01] MEDS ORDERED: GADOBUTROL 65ML VIAL IV ONE (17:55)
--- NOTE | 2022-10-01 19:06 | Magnetic Resonance Report ---
Brain MRA HISTORY: recurrent syncope, eval aneurysm, etc TECHNIQUE: 3-D [id number] MRA of the brain was performed without contrast. COMPARISON STUDY: Brain MRI 09/30/2022. FINDINGS: Visualized intracranial internal carotid arteries, distal vertebral arteries, and basilar a rtery are widely patent. 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 IMPRESSION: No significant stenosis, occlusion, or aneurysm within the [place]. ACT 112: Negative or not required by law. Electronically signed by: Duc Corcoran M.D. 10/01/2022 7:04 PM
--- NOTE | 2022-10-01 19:09 | Magnetic Resonance Report ---
NECK MRA HISTORY: recurrent syncope, eval aneurysm etc TECHNIQUE: [id number] and gadolinium-enhanced MRA of the neck was performed both before and after the intravenous administration of contrast. All measurements were calculated based on NASCET criteri a. COMPARISON STUDY: None. FINDINGS: The aortic arch and proximal great vessels are widely patent. There is no significant sten osis, occlusion, or dissection identified within the bilateral common carotid, internal carotid, or v ertebral arteries. IMPRESSION: No significant stenosis, occlusion, or dissection identified within the carotid or vertebral arteries . ACT 112: Negative or not required by law. Electronically signed by: Duc Corcoran M.D. 10/01/2022 7:07 PM
--- NOTE | 2022-10-01 19:25 | Hospitalist Progress Note ---
Date of Service October 01, 2022 Assessment & Plan (1) Syncope and collapse: Plan: The patient had a cluster of 3 brief episodes of syncope AM of 09/30/22 over a short period of time (~ 1 hour). Each episode had prodromal symptoms including dizziness, lightheadedness, and f eeling weak. There was no seizure activity by report. Following each episode she had return of consciousness quickly. BUN on labs was elevated at admission suggestive of volume depletion. She also had come down with a URI about 24 hours prior to these events which may have compounded the circumstances. Echo today wnl. Repeat EKG today wnl. Tele overnight wnl. Hydration status improved clinically and biochemically on labs. Plan for outpatient 30-day event monitor as well as referral to EP - Dr Souza or Dr Casey. Also recommend outpatient exercise stress test (see below discussion). Cont IV fluids but reduce rate to 50cc/hr. Cont symptomatic care of concussion. Could consider neuro consult to be complete given her lingering symptoms. (2) Head injury: Plan: Following her first syncopal event Lorin struck her head on a desk. The impact was over the occiput. She has had tunnel vision, ataxia, vertigo, double vision, headache, nausea, and other symptoms since then. Symptoms are consistent with a severe concussion. Cont private room, plenty of rest, copious hydration, avoid loud noise and brig ht lights, restrict reading/TV/any device, etc. Fortunately both her head CT and MRI brain are both normal. MRA head/neck normal. Tylenol prn pain. Meclizine for vertigo. Recommend f/u with concussion clinic at [facility] for monitoring recovery post-discharge. (3) Acute onset of severe vertigo: Plan: Occurred after her head injury. Likely due to a concussion/TBI. Doubt viral induced peripheral vertigo. Cont scheduled meclizine 12.5mg TID. If symptoms are refractory increase to 25mg TID. PT eval appreciated. (4) URI (upper respiratory infection): Plan: 48 hours of URI symptoms. Repeated a COVID/flu/RSV - fully negative. Symptomatic care. (5) Ataxia: Plan: 2nd to head injury. Fall precautions. PT consultation. MRI brain and head CT without acute pathology, stroke, etc. MRA head/neck wnl. Consider neurology consult (6) Concussion: Plan: s/p head injury early with multiple neurological symptoms since that time. See discussion above. (7) Family history of early sudden : Plan: Mother, age 36 from arrhythmia based on autopsy. Maternal uncle had a pacemaker and in his 40s - also suspected to be cardi ac in nature. It is concerning that the patient has had chest tightness during aerobic activities in the past. Apparently her mother had had episodes of syncope before her sudden cardiac . Lorin reports that she was told in [place], that her mother's arrhythmia was not hereditary in nature? Lorin and her 2 brothers received testing every ~2 years to monitor her c ardiac status. She cannot remember if she ever had an echo earlier in life. Fortunately her echocardiogram here is normal. EKG is normal including QTc. Tele thus far normal. Spoke informally with cardiology --> plan: * outpatient EP referral to Dr Souza or Dr Casey * 30-day event monitor at discharge * strongly consider outpatient stress test - defer during this stay due to the severity of her concussion and likely the inability to complete an exercise stress Plan change OBS to full admit status Admission and Anticipated Discharge Date Admission Date: September 30, 2022 Subjective patient feels "about the same" as yesterday occasional double vision frontal headache remains NO NECK PAIN with any movement no visual field cuts occasional spinning but only lasts a few seconds main issue is that of walking - still ataxic continues with nasal congestion from URI but no cough appetite is good denies any focal motor weakness no vomiting Review of Systems Review of Systems: gen - just overall feels poorly; no fever cv - c/o chest tightness but attributes such to anxiety about what is going on; no orthopnea pulm - no dyspnea or GANDHI GI - occasional nausea but no emesis eyes - some double vision (horizontal images) but no visual field cuts; some photophobia neuro - ongoing ataxia, headache, etc Physical Exam Physical Exam: gen - lying comfortably in bed, awake, alert, looks better today eyes - PERRLA, EOMI (I don't see any palsy), -12 beats of lateral nystagmus with right-wood gaze; visual delgado full by direct confrontation HENT - throat with mild erythema; MMM neck - supple, full ROM without any pain/discomfort heart - RRR, s1 s2, no murmur/rub/gallop lungs - CTA b/l abd - soft NT ND BS+; no HSM ext - no edema, pulses 2+ b/l neuro - strength 5/5 x 4 exts; no facial droop; finger/nose/finger maneuver without ataxia; gait not tested psych - a/o x 3 Results & Data Results & Data Vital Signs (Past 12 Hours) Vital Signs Temp Pulse Pulse Pulse Resp BP Pulse Ox 10/01/22 16:46 80 10/01/22 15:14 37.1 C 78 103/63 98 10/01/22 11:11 37.3 C 78 16 104/66 97 10/01/22 07:39 56 L O2 Del Method 10/01/22 16:46 10/01/22 15:14 Room Air 10/01/22 11:11 Room Air 10/01/22 07:39 Laboratory Results Laboratory Results - last 24 hr 09/30/22 10/01/22 19:27 05:28 Sodium 140 Potassium 3.9 Chloride 112 H Carbon Dioxide 24 Anion Gap 4 BUN 17 Creatinine 0.82 Est Cr Clr Drug Dosing 103.7 Est GFR ( Amer) 116.1 Est GFR (Non-Af Amer) 100.2 BUN/Creatinine Ratio 20.7 H Glucose 85 Calcium 8.5 L SARS-CoV-2 (PCR) NEGATIVE Influenza Type A (PCR) Negative Influenza Type B (PCR) Negative RSV (RT-PCR) Negative Diagnostic Findings Head MRA 10/01/22 12:03 Brain MRA HISTORY: recurrent syncope, eval aneurysm, etc TECHNIQUE: 3-D [id number] MRA of the brain was performed without contrast. COMPARISON STUDY: Brain MRI 09/30/2022. FINDINGS: Visualized intracranial internal carotid arteries, distal vertebral arteries, and basilar artery are widely patent. There is no significant stenosis, occlusion, or aneurysm seen within the bilateral ACAs, MCAs, or steward/stewardess third. IMPRESSION: No significant stenosis, occlusion, or aneurysm within the nez perce of [place]. ACT 112: Negative or not required by law. Electronically signed by: Duc Corcoran M.D. 10/01/2022 7:04 PM Neck MRA 10/01/22 12:03 NECK MRA HISTORY: recurrent syncope, eval aneurysm etc TECHNIQUE: [id number] and gadolinium-enhanced MRA of the neck was performed both before and after the intravenous administration of contrast. All measurements were calculated based on NASCET criteria. COMPARISON STUDY: None. FINDINGS: The aortic arch and proximal great vessels are widely patent. There is no significant stenosis, occlusion, or dissection identified within the bi lateral common carotid, internal carotid, or vertebral arteries. IMPRESSION: No significant stenosis, occlusion, or dissection identified within the carotid or vertebral arteries. ACT 112: Negative or not required by law. Electronically signed by: Duc Corcoran M.D. 10/01/2022 7:07 PM Echocardiogram: EKG - my reading - NSR, no ST changes, QTc wnl PG Care Time/CCT Total # of Minutes Spent Total Time Spent with Patient: Total time spent is greater than 50% in coordination of care (as documented) at patient's floor/unit and/or counseling patient: Coding Level of Care Code 73505 SUB INP/OBS CARE 3/50MIN Diagnoses Syncope and collapse R55 Head injury S09.90XA Acute onset of severe vertigo R42 URI (upper respiratory infection) J06.9 Ataxia R27.0 Concussion S06.0XAA Family history of early sudden Z84.89
[2022-10-02] MEDS: ACETAMINOPHEN 500 MG TAB PO PRN (02:46)
--- NOTE | 2022-10-02 06:13 | Electrocardiogram Report ---
Test Reason : Blood Pressure : / mmHG Vent. Rate : 064 BPM Atrial Rate : 064 BPM P-R Int : 126 ms QRS Dur : 078 ms QT Int : 398 ms P-R-T Axes : 077 026 057 degrees QTc Int : 410 ms Normal sinus rhythm Low voltage QRS Borderline ECG No previous ECGs available Confirmed by Chang Metz ([id number]) on 10/02/2022 6:13:00 AM Referred By: REFERRED SELF Confirmed By:Chang Metz
[2022-10-02] MEDS: MECLIZINE 12.5 MG TAB PO SCH ×2 (09:18→14:02)
[2022-10-02] MEDS: D5W AND NSS 1,000 ML IV SCH (11:28)
[2022-10-02] MEDS ORDERED: AMOXICILLIN/CLAVULANATE 875 MG TAB PO ONE (14:00)
--- NOTE | 2022-10-12 10:20 | Discharge Summary ---
Date of Service date of admission - September 30, 2022 date of discharge - October 02, 2022 Admission HPI Per Admitting Provider 22yo female with history of asthma presents from her home in [place] with multiple episodes of passing out. Patient reports that yesterday she noted she had mild sore throat, nasal congestion, and chills. 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 She reports she was sitting in a chair and suddenly felt unwell. A co-worker noticed she did not look good and she told her co-worker she felt dizzy and lig htheaded. Lorin stood up, continued to feel dizzy/lightheaded, and passed out for a few seconds. During that event she hit her head on the desk at which she was sitting. She hit the back of her head. This event took place about 730am today. After the first syncopal episode she had nausea, she had "tunnel vision," and felt unsteady. A co-worker drove her home. About 815 she had a 2nd syncopal episode. Again she felt dizzy & lightheaded and proceeded to pass out. She woke up on the floor of her apartment. She then had a 3rd syncopal episode about 10 minutes later. Prior to the 3rd e vent she had prodromal dizziness. At home she developed vertigo with movements. Denies having any visual field cut. Denies any blurry vision. She has had a headache. After the 3rd episode a friend brought her to [facility] for evaluation. Orthostatic BPs were wnl here. Last meal - breakfast before work this am; a hamburger about 2 hours prior to my assessment. Per the emergency room attending attempts were made to have Lorin walk and she had significant ataxia. She states she felt like she was going to fall to her left. She continues with vertigo with any movement although this is a little better since receiving the meds as listed below. ER course - ativan x 1 valium x 1 IV fluids meclizine x 1 zofran x 1 tylenol x 1 Patient reports only one other episode of syncope - about 6 months ago while working as a BOTTOM [employer]ER she saw something unpleasant, developed tingling and felt warm, and proceeded to pass out. Principal Diagnosis 1. syncope 2. head injury with concussion 3. ataxia due to concussion 4. vertigo due to concussion 5. possible dental abscess due to impacted wisdom tooth 6. upper respiratory infection 7. family history of early sudden cardiac Discharge Exam gen - lying comfortably in bed, awake, alert, looks good eyes - PERRLA, EOMI, nystagmus with right-wood gaze resolved; visual delgado full by direct confrontation HENT - throat with mild erythema; MMM; impacted maxillary wisdom tooth on left with associated gingival erythema/swelling neck - supple, full ROM without any pain/discomfort heart - RRR, s1 s2, no murmur/rub/gallop lungs - CTA b/l abd - soft NT ND BS+; no HSM ext - no edema, pulses 2+ b/l neuro - strength 5/5 x 4 exts; no facial droop; finger/nose/finger maneuver without ataxia; gait not tested psych - a/o x 3 Discharge Data Allergies Allergy/AdvReac Type Severity Reaction Status Date / Time No Known Allergies Allergy Verified 10/05/22 09:00 Consultations Physical therapy Procedures Performed Echocardiogram: Ordered Studies Head CT 09/30/22 10:[address] DOSE: 547.75 mGy.cm HISTORY: Posterior head injury. fall, CHI, Syncope TECHNIQUE: Multiaxial CT images of the head were performed without the use of intravenous contrast. Automated exposure control was utilized for this study. A dose lowering technique was utilized adhering to the principles of ALARA. Comparison: None. Findings: The paranasal sinuses and mastoid air cells are clear. The calvarium and skull base are intact. The ventricles and sulci are within normal limits. There is no mass, hematoma, midline shift, or acute infarct. Impression: No acute intracranial abnormality. ACT 112: Negative or not required by law. Electronically signed by: Duc Corcoran M.D. 09/30/2022 11:16 AM Brain MRI 09/30/22 13:44 MRI OF THE BRAIN WITHOUT CONTRAST CLINICAL HISTORY: Syncope. Severe vertigo. COMPARISON STUDY: Head CT performed earlier today. TECHNIQUE: Utilizing a 1.5 Nicole magnet and dedicated coil, multiplanar, multiecho imaging of the brain was performed without IV contrast. FINDINGS: This study is mildly compromised by motion artifact. No acute intracranial hemorrhage, midline shift or mass effect is present. Ventricular system is normal. Basal cisterns are patent. There are no extraaxial col lections. Flow-voids for the major intracranial vessels are present. Diffusion- weighted sequence is compromised by motion artifact however there are no foci of restricted diffusion to suggest acute infarct. The basal cisterns are patent. There are no extra-axial collections. No intracranial masses are identified on this unenhanced exam. No definite parenchymal signal abnormality is present. IMPRESSION: Exam mildly compromised by motion artifact. No acute intracranial findings. Unremarkable unenhanced MRI of the brain. ACT 112: Negative or not required by law. Electronically signed by: Willis Downing M.D. 09/30/2022 3:53 PM Head MRA 10/01/22 12:03 Brain MRA HISTORY: recurrent syncope, eval aneurysm, etc TECHNIQUE: 3-D stqf-xl-xjxrps MRA of the brain was performed without contrast. COMPARISON STUDY: Brain MRI 09/30/2022. FINDINGS: Visualized intracranial internal carotid arteries, distal vertebral arteries, and basilar artery are widely patent. There is no significant stenosis, occlusion, or aneurysm seen within the bilateral ACAs, MCAs, or inventory control planner. IMPRESSION: No significant stenosis, occlusion, or aneurysm within the [place]. ACT 112: Negative or not required by law. Electronically signed by: Duc Corcoran M.D. 10/01/2022 7:04 PM Neck MRA 10/01/22 12:03 NECK MRA HISTORY: recurrent syncope, eval aneurysm etc TECHNIQUE: Efgz-kl-affwbe and gadolinium-enhanced MRA of the neck was performed both before and after the intravenous administration of contrast. All measurem ents were calculated based on NASCET criteria. COMPARISON STUDY: None. FINDINGS: The aortic arch and proximal great vessels are widely patent. There is no significant stenosis, occlusion, or dissection identified within the bilateral common carotid, internal carotid, or vertebral arteries. IMPRESSION: No significant stenosis, occlusion, or dissection identified within the carotid or vertebral arteries. ACT 112: Negative or not required by law. Electronically signed by: Duc Corcoran M.D. 10/01/2022 7:07 PM Hospital Course (1) Syncope and collapse: The patient had a cluster of 3 brief episodes of syncope AM of 09/30/22 over a short period of time (~ 1 hour). Each episode had prodromal symptoms including dizziness, lightheadedness, and feeling weak. There was no seizure activity by report. Following each episode she had return of consciousness quickly. Unfortunately, with her first episode of syncope, she hit her head on a desk at work resulting in a concussion (see below). Her history and prodromal symptoms were most suggestive of vasovagal etiology of her syncope. She also had a classic vasovagal episode several months prior while at work. BUN on labs was elevated at admission suggestive of volume depletion. She also had come down with a URI about 24 hours prior to these events which may have compounded the circumstances. Work-up while here --> echocardiogram, EKGs, telemetry, MRI brain, CT head, and MRA head/neck were all normal. Hydration status improved clinically and biochemically on labs with copious IV fluids. Plan: * outpatient 30-day event monitor * electrophysiology evaluation by Dr Koko Casey due to her syncope and family history of early sudden cardiac (mother in her 30s) * possible outpatient exercise stress test (see below discussion) She had no further near-syncope or syncope during the stay. She will f/u with [facility] shortly after discharge for recheck. (2) Head injury: Following her first syncopal event Lorin struck her head on a desk. The impact was over the occiput. She had tunnel vision, ataxia, vertigo, double vision, headache, nausea, and other symptoms since the head injury. Symptoms were consistent with a severe concussion. Fortunately both her head CT and MRI brain were both normal. MRA head/neck were also normal. Tylenol prn pain. Naprosyn prn pain/headache. Meclizine prn for vertigo. Zofran prn nausea/emesis. At discharge she was given multiple handouts on concussion, post-concussion treatment, etc. She was advised to rest, avoid excessive use of devices (TV, phone, tablets, computer, etc), stay out of work until her symptoms are much improved, hydrate and focus on good nutrition, etc. She will f/u with [facility] shortly after discharge for recheck. (3) Acute onset of severe vertigo: Occurred after her head injury. Likely due to a concussion/TBI. Doubt viral induced peripheral vertigo despite her concurrent URI. Cont meclizine 12.5mg TID prn. Seen by PT during the stay. Once she starts to improve from the concussion standpoint she may be able to participate in a post-concussion PT program. (4) URI (upper respiratory infection): COVID/flu/RSV - fully negative. Symptomatic care. (5) Ataxia: 2nd to head injury/concussion. MRI brain and head CT without acute pathology, stroke, etc. MRA head/neck also wnl. Symptoms improved over her 48 hour stay. F/u [facility] post-discharge. (6) Concussion: s/p head injury early with multiple neurological symptoms c/w concussion. See above. (7) Family history of early sudden : Mother - age 36 from arrhythmia based on autopsy per the patient's recollection. Maternal uncle had a pacemaker and in his 40s - also suspected to be cardiac in nature. Patient reported having had chest tightness during aerobic activities in the past. Apparently her mother had had episodes of syncope before her sudden cardiac . Lorin reports that she was told in [place], that her mother's arrhythmia was not hereditary in nature? Lorin and her 2 brothers received testing every ~2 years to monitor her cardiac status. She cannot remember if she ever had an echo earlier in life. Fortunately her echocardiogram here was normal. EKG was normal including QTc. Telemetry here was normal. Spoke informally with [facility] --> plan at discharge: * outpatient EP referral (Dr Koko Casey) * 30-day event monitor at discharge * strongly consider outpatient stress test - deferred during this stay due to the severity of her concussion and the inability to complete an exercise stress while ill (8) Impacted tooth: left maxillary molar possible dental abscess augmentin 875mg BID x 7 days f/u with personal dentist yanira (1-2 weeks) for evaluation Total Time Total Time Spent Total Time Spent (In Minutes): 40 Discharge Plan Discharge Items Patient Disposition: Home - Self-Care Reason For Visit: SYNCOPE, HEAD INJURY, CONCUSSION, ATAXIA Discharge Diagnosis: 1. syncope/passing out spells 2. head injury with concussion 3. ataxia/balance problems due to concussion 4. vertigo due to concussion 5. possible dental abscess due to wisdom tooth 6. upper respiratory infection Activity: Per Instructions section Lifting: No more than 10 pounds Sexual Activity: Wait until after follow-up appointment Exercise/Sports: Wait until after follow-up appointment Driving/Machine Use: NO DRIVING unless cleared by neurology Non-emergency contact: Primary Care Provider, [facility] Laboratory Technician and Neurologist Call non-emergency contact if: you have any medication questions, your symptoms worsen, your pain is not controlled, your pain is worsening, your pain is unusual for you, your pain is concerning for you and you have a fever Follow-up/Referrals: Koko Casey MD [Physician] - 10/20/22 11:30 am Enrique Love MD [Physician] - 10/05/22 9:00 am (Jordana oGodrich PA-C) Eveline Morrison DO [Primary Care Provider] - 10/12/22 11:20 am (Please arrive 15 minutes prior to appointment time. ) PCP,NO [Physician] - Diet: Regular Addtl Attending Provider Instructions: Lorin, You were hospitalized after having had a cluster of 3 brief episodes of syncope, also known as fainting or passing out (see handouts). It is likely that you had the most common cause of fainting/syncope called "vasovagal." Vasovagal fainting spells can occur when someone gets frightened by the site of blood, standing too long in a hot room, being dehydrated and standing too quickly, etc. Given your mother's heart history we do want to be sure that a heart rhythm problem was not the cause of your syncope. During your stay, however, your heart monitoring was normal and your heart ultrasound (echocardiogram) was normal. Unfortunately, during your first episode of fainting, you had a significant head injury to the back of your head causing a concussion. Many of your symptoms you had during your stay - vertigo (spinning), ataxia (balance trouble), headache, etc - were due to the concussion. We performed MRI brain, and MRA of the head and neck, and all 3 studies were normal. We did not find aneurysms, bleeding, tumor, or other abnormalities of the brain. We did not find any abnormalities of the blood vessels of the brain or neck either. CT head did not show any broken bones of the skull. Recommendations - 1. Rest! This will be the most important thing you do while you are recovering from your concussion. Avoid loud noises, bright lights, excessive screen time (TV, tablet, phone, etc), long periods of reading, etc. See handouts on concussion. 2. Stay well hydrated - drink plenty of fluids. Avoid alcohol at this time. Gatorade and powerade will be good during your recovery. 3. Ok to take prescription naprosyn 500mg every 12 hours as needed for headache, facial pain from your tooth, etc. Do not take any taxb-gph-exfbfqk ibuprofen (motrin) since we have prescribed the naprosyn. 4. Ok to take mpfh-tde-qwmywyb tylenol 1000mg every 6 hours as needed for pain or fever; maximum 3000mg in 24 hours. 5. For dizziness/vertigo/spinning - meclizine 12.5mg every 8 hours as needed. 6. For nausea or vomiting - ondansetron 4mg every 6 hours as needed. 7. For possible dental abscess/tooth infection take - amoxicillin-clavulanate 875mg twice daily x 7 days, first dose TONIGHT. Take with food. Ok to take an gmxc-ivo-erbcwaz probiotic to help prevent diarrhea from your antibiotic. 8. No exercise or heavy exertional activities. 9. No heavy lifting. 10. No driving a car unless cleared by the neurologist. 11. To ensure a heart problem did not cause your syncope please wear a 30-day heart monitor at home. This will be mailed to your home with instructions. The results go to [facility]. You will have follow-up with cardiology in a few weeks. 12. Ask neurology next week when it would be ok to start outpatient physical therapy. Follow-up - see separate section Please be sure to see a dentist sometime in the next few weeks to address your wisdom teeth Return to [facility] if - * you have fevers over 100 degrees * you have uncontrolled headaches that won't respond to your medications * you have severe dizziness/vertigo that is not responding to your medication * you have weakness in a leg, arm, etc * you have loss of vision or ongoing double vision * any other concerns It was our pleasure to care for you! -Dr Martinez Pending Studies at Discharge: No Stand-Alone Forms: My [facility], Smoking Cessation Medications and DC Order Prescriptions: New acetaminophen [Tylenol Extra Strength] 500 mg Tablet 1,000 mg PO Q6H PRN (Reason: fever or pain) Qty: 1 0RF Rx Instructions: purchase okwd-pdz-pxyxheg; maximum 3000mg in 24 hours. meclizine 12.5 mg Tablet 12.5 mg PO TID PRN (Reason: vertigo/spinning/severe dizziness) Qty: 30 0RF naproxen [Naprosyn] 500 mg tablet 500 mg PO BID PRN (Reason: pain or headache) Qty: 30 0RF ondansetron 4 mg tablet,disintegrating 4 mg PO Q6H PRN (Reason: nausea and vomiting) Qty: 7 0RF Discharge Orders: Discharge Order (Routine); Ordered 10/02/22 Ordered By: Gómez Ko/Other Patient Handouts: Coping with Concussion, After a Concussion, What Is Syncope, Causes of Syncope, ED Concussion Admission Data Admit Date/Time: 09/30/22 18:52 Attending Provider: Gómez Martinez Admit Provider: Gómez Martinez Primary Care Provider: Eveline Morrison Other Interventions: Discharge Summary Assessment (RN) Last Done: 10/02/22 15:10 Coding Level of Care Code 56284 INP/OBS DISCH >30 MIN Diagnoses Syncope and collapse R55 Head injury S09.90XA Acute onset of severe vertigo R42 URI (upper respiratory infection) J06.9 Ataxia R27.0 Concussion S06.0XAA Family history of early sudden Z84.89 Impacted tooth K01.1
== END 2022-10-02 15:47 | disposition home or self-care (01) ==
LOC: 4W 09:48 → ED 09:48 → 4W 20:43

== ENCOUNTER 2023-10-05 18:51 | Inpatient (IN) ==
[2023-10-05] MEDS: ONDANSETRON INJ 2 MG/ML 2 ML VIAL ONE (19:51)
[2023-10-05] MEDS: SODIUM CHLORIDE 0.9% 1,000 ML IV ONE (19:53)
[2023-10-05 20:01] LABS: Appearance Urine Cloudy (Clear); Bacteria Urine Automated 4+ (None Seen); Bilirubin Urine Negative (Negative); Blood Urine Trace (Negative); Cast Urine Automated 0-2 /lpf (0-2); Color Urine Yellow; Epithelial Cell Urine Auto 0-2 /hpf (0-2); Glucose Urine UA Negative (Negative); Ketones Urine 2+ (Negative); Leukocyte Esterase Urine 1+ (Negative); Nitrite Urine Positive (Negative); Protein Urine Trace (Negative); Specific Gravity Urine 1.019 (1.000-1.030); Urobilinogen Urine Negative (Negative); WBC Urine Automated 21-50 /hpf (0-5)
[2023-10-05 20:06] LABS: Basophils # (auto) 0.03 K/uL (0.00-0.20); Basophils % (auto) 0.2 %; Hematocrit (blood only) 41.2 % (37.0-47.0); Hemoglobin 13.9 g/dl (12.0-16.0); Immature Granulocytes # (auto) 0.07 K/uL (0.01-0.20); Immature Granulocytes % (auto) 0.4 %; Lymphocytes # (auto) 1.16 K/uL (1.20-3.40); Lymphocytes % (auto) 7.3 %; Mean Corpuscular Hemoglobin 29.8 pg (25.0-34.0); Mean Corpuscular Hgb Conc 33.7 g/dL (32.0-36.0); Mean Corpuscular Volume 88.2 fL (80.0-100.0); Mean Platelet Volume 9.8 fL (9.4-12.4); Monocytes # (auto) 0.95 K/uL (0.11-0.59); Neutrophils # (auto) 13.61 K/uL (1.40-6.50); Neutrophils % (auto) 86.1 %; Platelet Count 185 K/uL (130-400); RDW Coefficient of Variation 12.5 % (11.5-14.5); RDW Standard Deviation 40.6 fL (36.4-46.3); Red Blood Count 4.67 M/uL (4.20-5.40); White Blood Count 15.82 K/ul (4.8-10.8)
[2023-10-05 20:25] LABS: Albumin Globulin Ratio 1.5 (0.9-2); Albumin Level 4.7 gm/dl (3.4-5.0); BUN Creatinine Ratio 15.1 (10-20); Bilirubin,Total 0.9 mg/dl (0.2-1.0); Calcium 9.8 mg/dl (8.6-10.3); Est GFR (Non-African American) 85.4 ml/min; Globulin 3.1 gm/dl (2.5-4.0); Potassium 3.9 mmol/L (3.5-5.1); Total Protein 7.8 gm/dl (6.0-8.3)
[2023-10-05 21:01] LABS: Adenovirus PCR Not Detected (NotDetected); Bordetella parapertussis PCR Not Detected (NotDetected); Bordetella pertussis PCR Not Detected (NotDetected); Chlamydia pneumoniae PCR Not Detected (NotDetected); Coronavirus 229E PCR Not Detected (NotDetected); Coronavirus CoV-2 (COVID19)PCR Not Detected (NotDetected); Coronavirus HKU1 PCR Not Detected (NotDetected); Coronavirus NL63 PCR Not Detected (NotDetected); Coronavirus OC43PCR Not Detected (NotDetected); Human Metapneumovirus PCR Not Detected (NotDetected); Influenza A PCR Not Detected (NotDetected); Influenza B PCR Not Detected (NotDetected); Mycoplasma pneumoniae PCR Not Detected (NotDetected); Parainfluenza Virus 1 PCR Not Detected (NotDetected); Parainfluenza Virus 2 PCR Not Detected (NotDetected); Parainfluenza Virus 3 PCR Not Detected (NotDetected); Parainfluenza Virus 4 PCR Not Detected (NotDetected); Respiratory Syncytial VirusPCR Not Detected (NotDetected); Rhinovirus/Enterovirus PCR Not Detected (NotDetected)
[2023-10-05] MEDS: ONDANSETRON INJ 2 MG/ML 2 ML VIAL IV STA (23:42)
[2023-10-05] MEDS: KETOROLAC TROMETHAMINE 15 MG/ML VIAL IV STA (23:42)
[2023-10-06] MEDS: SODIUM CHLORIDE 0.9% 1,000 ML IV ONE (00:14)
[2023-10-06] MEDS: ACETAMINOPHEN 1,000 MG/100 ML VIAL IV STA (00:14)
[2023-10-06 00:30] LABS: Magnesium 1.5 mg/dl (1.7-2.4)
[2023-10-06 00:41] LABS: Pregnancy Test, Urine Negative (Negative)
--- NOTE | 2023-10-06 00:54 | Emergency Department Note ---
Impression & Plan Recurrent UTI, Sepsis ED Provider Note CHIEF COMPLAINT: Fever, nausea, vomiting HISTORY OF PRESENT ILLNESS: This is a 23-year-old female patient who presents to the emergency department today for evaluation of generalized illness. The patient states she woke suddenly with fever, nausea, vomiting, abdominal pain, and right flank pain. The patient states she was seen here about 3 weeks ago and diagnosed with a kidney infection. She states that she had similar symptoms at that time, but the symptoms did not seem to be so severe. She was on a 10- day course of antibiotics. The antibiotics were changed 2 days then based on culture results. She initially took cefdinir and was changed to Bactrim. The patient denies any dysuria, urinary frequency, urinary hesitancy, hematuria. She denies any recent trauma. Last menstrual period was 2 weeks ago and was normal. Patient rates her generalized discomfort a 6/10 and describes it as achiness. REVIEW OF SYSTEMS: A 10 system review of systems was performed with positives and pertinent negatives listed in the history of present illness. All other systems were reviewed and are negative. ALLERGIES: NKDA PHYSICAL EXAM: VITALS: Vitals are noted on the nurse's note and reviewed by myself. Patient is tachycardic and febrile. GENERAL: This is a 23 year old female, in no acute distress, nondiaphoretic, well-developed well-nourished. SKIN: The skin was without rashes, erythema, edema, or bruising. There is no tenting of the skin. Capillary refill less than 2 seconds. HEAD: Normocephalic atraumatic. EYES: Conjunctivae without injection, sclerae without icterus. NECK: Supple without nuchal rigidity. No lymphadenopathy. Cervical spine is nontender. No JVD. HEART: Regular rate and rhythm without murmurs gallops or rubs. LUNGS: Clear to auscultation bilaterally without wheezes, rales or rhonchi. No retractions or accessory muscle use. ABDOMEN: Positive bowel sounds x 4. Soft, nontender, without masses or organomegaly. Siddiqui sign negative. No guarding or rebound tenderness. Positive right CVA tenderness. MUSCULOSKELETAL: No muscle atrophy, erythema, or edema noted. Full range of motion without joint tenderness in all extremities. No tenderness to palpation. Normal gait. Strength 5/5 throughout. NEURO: Patient was alert and oriented to person place and time. No focal neurological deficits. An order was placed for continuous figure refinisher and repairer. The monitor showed a sinus tachycardia at a ventricular rate of 118 bpm, per my interpretation. Imaging as interpreted by myself with no evidence of stone on KUB. Ultrasound imaging was pending at the time of admission. EMERGENCY DEPARTMENT COURSE: This 23-year-old female patient presents to the emergency department today for evaluation of generalized illness. The patient had nausea, vomiting, right flank pain. She did recently have a UTI and was treated with a 10-day course of Bactrim based on culture results. Due to high-volume, high acuity in the emergency department, critical pathways were initiated by nursing staff. IV access was obtained, labs were drawn. The patient was hydrated with IV fluids and medicated with Zofran and Toradol. At this time, I did see the patient. The patient initially presented to the emergency department 1850. Due to high-volume, high acuity in the emergency department, did not evaluate the patient until after 0. At this time, I did review the patient's medical records. Reviewed recent ED visit and culture reports with pharmacy recommendations. The patient was seen in the emergency department for UTI symptoms. She did have IV and labs as well as CT imaging completed. There was no evidence of stone or obstruction. She was initially started on cefdinir and subsequently placed on Bactrim based on culture results. She was on a full 10-day course of Bactrim. The patient presents with right flank pain. Workup here in the emergency department was reviewed. The patient does have a leukocytosis of 15,000 with a shift. There is no anemia or thrombocytopenia. Renal, hepatic function and electrolytes without significant abnormality. Urinalysis was positive for nitrates, 4+ bacteria, leukocyte esterase. At this time, I did order additional IV fluids to be administered. I did order acetaminophen and Zofran to help with the patient's fever. The patient is not . The patient had additional labs drawn. Lactic acid was 0.9. Procalcitonin 0.46. Respiratory bio fire testing was negative. The patient was monitored. Did recommend ultrasound of the kidneys to evaluate for possible hydronephrosis/pyelonephritis. Ultrasound was completed. Per my interpretation, there is no clear evidence of hydronephrosis. I did speak with the pharmacist, Juaquin Corado. He reviewed previous culture results and made recommendations for antibiotics. Did recommend the patient be started on a fluoroquinolone such as ciprofloxacin. He did note that if the patient were to decline in her condition, that she could be switched to something more broad-spectrum such as cefepime. The patient was again reassessed. She is continue to have fever and mild tachycardia. She is not hypotensive. She is starting to feel somewhat better. She was medicated with ciprofloxacin IV. At this point, I did recommend admission. I am concerned for sepsis and recurrent UTI which may be resistant to antibiotics. Recommended inpatient treatment and the patient was agreeable. Unfortunately, given the high volume in the ED there was an initial delay in care and the patient did not receive appropriate sepsis fluid resuscitation or initiation of antibiotics on initial presentation. I discussed the case with the catering convention services manager. I discussed the case with the [facility] hospitalist physician, Dr. Bowling as well as Dr. Martínez, Resident physician. Please see hospitalist dictation regarding ongoing management and care of this patient. This visit is during a period of high volume and high acuity in the emergency department. I attest that I have personally reviewed the patient medication list. I attest that I have reviewed the patient's blood pressure and it was found to be normal GCS: 15 In the evaluation and treatment of this patient the following differential diagnoses were entertained: Sepsis, UTI, pneumonia, metabolic, electrolyte abnormalities, cardiac sources, intracerebral event, toxicologic, neurologic, as well as other pathologies. The chart was completed utilizing [employer] Speech voice recognition software. Grammatical errors, random word insertions, pronoun errors, and incomplete sentences are an occasional consequence of this system due to software limitations, ambient noise, and hardware issues. Any formal questions or concerns about the content, text, or information contained within the body of this dictation should be directly addressed to the provider for clarification. Past Med/Surg History Problem List (Updated 10/06/23 @ 06:52 by Kira De Los Santos PA-C) Sepsis (Acute) Recurrent UTI (Acute) Asthma Family history of sudden in mother Syncope Impacted tooth Medical History Family history of early sudden Concussion Ataxia Head injury Achilles tendon injury large cut to the achilles requiring surgery; right side Vertigo Syncope and collapse Surgical History Hx of external ear surgery pinning / repositioning b/l ears Family History Mother , age 36; autopsy suggested arrhythmia as cause of Sudden cardiac Uncle , Maternal uncle; age 45; had pacemaker, then from arrhythmia? 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 Feels Safe at Home: Yes Do you think of yourself as: straight/heterosexual Sexual Activity: has been sexually active within the last 12 months Assistive Devices: None Allergies Allergies Allergy/AdvReac Type Severity Reaction Status Date / Time No Known Allergies Allergy Verified 09/10/23 19:10 Home Meds Home Medications Medication Instructions Recorded Confirmed ascorbic acid (vitamin C) 500 mg 500 mg PO DAILY 09/10/23 10/05/23 tablet (Vitamin C) ibuprofen 200 mg tablet 400 mg PO Q6H PRN Fever Or Pain 09/10/23 10/05/23 multivitamin 1 tab PO DAILY 09/10/23 10/05/23 paroxetine HCl 20 mg tablet 20 mg PO DAILY 09/10/23 10/05/23 Previous Rx's Medication Instructions Recorded acetaminophen 500 mg tablet 1,000 mg (2 x 500 mg) PO Q6H PRN 10/02/22 (Tylenol Extra Strength) fever or pain #1 tab Results & Data (ED) Vital Signs Vital Signs - 24 hr 10/05/23 19:07 10/05/23 23:41 10/05/23 23:45 Temperature 37.8 C H 39.4 C H Temperature Source Oral Oral Pulse Rate 131 H 121 H Pulse Rate [Apical] 122 H Respiratory Rate 16 22 Respiratory Effort / Characteristics Non-Labored Spontaneous Respiratory Depth Normal Respiratory Pattern Regular Blood Pressure 108/68 Blood Pressure [Left Arm] 109/67 Blood Pressure Mean 81 Blood Pressure Mean [Left Arm] 81 Pulse Oximetry 94 97 Oxygen Delivery Method Room Air Room Air Sepsis Recent Fever Within 48 Hours Yes Sepsis New/Unexplained Change in Mental Status No Sepsis Action Taken by Nursing No Action Required 10/06/23 00:07 10/06/23 00:07 10/06/23 00:18 Temperature 39.1 C H Temperature Source Oral Pulse Rate 118 H Pulse Rate [Apical] 118 H 129 H Respiratory Rate 22 22 19 Respiratory Effort / Characteristics Respiratory Depth Respiratory Pattern Blood Pressure Blood Pressure [Left Arm] 104/60 Blood Pressure Mean Blood Pressure Mean [Left Arm] 74 Pulse Oximetry 96 96 97 Oxygen Delivery Method Room Air Room Air Room Air Sepsis Recent Fever Within 48 Hours Sepsis New/Unexplained Change in Mental Status Sepsis Action Taken by Nursing 10/06/23 00:33 10/06/23 01:00 10/06/23 02:01 Temperature 38.7 C H 37.4 C Temperature Source Oral Oral Pulse Rate Pulse Rate [Apical] 106 H 104 H 92 H Respiratory Rate 21 21 21 Respiratory Effort / Characteristics Respiratory Depth Respiratory Pattern Blood Pressure Blood Pressure [Left Arm] 106/67 103/58 L Blood Pressure Mean Blood Pressure Mean [Left Arm] 80 73 Pulse Oximetry 95 96 95 Oxygen Delivery Method Room Air Room Air Room Air Sepsis Recent Fever Within 48 Hours Sepsis New/Unexplained Change in Mental Status Sepsis Action Taken by Nursing 10/06/23 02:54 10/06/23 03:47 10/06/23 04:00 Temperature 36.9 C Temperature Source Oral Pulse Rate 75 Pulse Rate [Apical] 85 Respiratory Rate 16 Respiratory Effort / Characteristics Respiratory Depth Respiratory Pattern Blood Pressure Blood Pressure [Left Arm] 94/72 L Blood Pressure Mean Blood Pressure Mean [Left Arm] 79 Pulse Oximetry 98 Oxygen Delivery Method Room Air Sepsis Recent Fever Within 48 Hours Sepsis New/Unexplained Change in Mental Status Sepsis Action Taken by Nursing 10/06/23 05:17 Temperature 37.7 C H Temperature Source Oral Pulse Rate Pulse Rate [Apical] Respiratory Rate Respiratory Effort / Characteristics Respiratory Depth Respiratory Pattern Blood Pressure Blood Pressure [Left Arm] Blood Pressure Mean Blood Pressure Mean [Left Arm] Pulse Oximetry Oxygen Delivery Method Sepsis Recent Fever Within 48 Hours Sepsis New/Unexplained Change in Mental Status Sepsis Action Taken by Nursing Laboratory Data 10/05/23 19:43 10/05/23 19:43 Lab Results 07/09/24 07/09/24 07/10/24 Range/Units 19:32 19:43 00:16 WBC 15.82 H (4.8-10.8) K/ul RBC 4.67 (4.20-5.40) M/uL Hgb 13.9 (12.0-16.0) g/dl Hct 41.2 (37.0-47.0) % MCV 88.2 (80.0-100.0) fL MCH 29.8 (25.0-34.0) pg MCHC 33.7 (32.0-36.0) g/dL RDW Std Deviation 40.6 (36.4-46.3) fL RDW Coeff of Evangelista 12.5 (11.5-14.5) % Plt Count 185 (130-400) K/uL MPV 9.8 (9.4-12.4) fL Immature Gran % (Auto) 0.4 % Neut % (Auto) 86.1 % Lymph % (Auto) 7.3 % [place] % (Auto) 6.0 % Eos % (Auto) 0.0 % Baso % (Auto) 0.2 % Neut # (Auto) 13.61 H (1.40-6.50) K/uL Lymph # (Auto) 1.16 L (1.20-3.40) K/uL [place] # (Auto) 0.95 H (0.11-0.59) K/uL Eos # (Auto) 0.00 (0.00-0.50) K/uL Baso # (Auto) 0.03 (0.00-0.20) K/uL Immature Gran # (Auto) 0.07 (0.01-0.20) K/uL Sodium 135 L (136-145) mmol/L Potassium 3.9 (3.5-5.1) mmol/L Chloride 101 (98-107) mmol/L Carbon Dioxide 25 (21-32) mmol/L Anion Gap 9 (3-11) BUN 14 (6-23) mg/dl Creatinine 0.93 (0.6-1.2) mg/dl Est Cr Clr Drug Dosing 100.0 ml/min Est GFR ( Amer) 99.0 ml/min Est GFR (Non-Af Amer) 85.4 ml/min BUN/Creatinine Ratio 15.1 (10-20) Glucose 112 H (70-99(Fasting)) mg/dl Lactate 0.9 (0.4-2.0) mmol/L Calcium 9.8 (8.6-10.3) mg/dl Magnesium 1.5 L (1.7-2.4) mg/dl Total Bilirubin 0.9 (0.2-1.0) mg/dl AST 19 (13-39) U/L ALT 17 (7-52) U/L Alkaline Phosphatase 64 (34-104) U/L Total Protein 7.8 (6.0-8.3) gm/dl Albumin 4.7 (3.4-5.0) gm/dl Globulin 3.1 (2.5-4.0) gm/dl Albumin/Globulin Ratio 1.5 (0.9-2) Procalcitonin 0.46 (0-0.5) ng/ml Urine Color Yellow Urine Appearance Cloudy A (Clear) Urine pH 7.0 (4.5-7.5) Ur Specific [place] 1.019 (1.000-1.030) Urine Protein Trace H (Negative) Urine Glucose (UA) Negative (Negative) Urine Ketones 2+ H (Negative) Urine Blood Trace H (Negative) Urine Nitrite Positive A (Negative) Urine Bilirubin Negative (Negative) Urine Urobilinogen Negative (Negative) Ur Leukocyte Esterase 1+ H (Negative) Urine WBC (Auto) 21-50 H (0-5) /hpf Urine RBC (Auto) 6-10 H (0-2) /hpf U Hyaline Cast (Auto) 0-2 (0-2) /lpf U Epithel Cells (Auto) 0-2 (0-2) /hpf Urine Bacteria (Auto) 4+ H (None Seen) Urine Test Negative (Negative) Adenovirus (PCR) Not Detected (NotDetected) B. pertussis DNA (PCR) Not Detected (NotDetected) B.parapertussis DNA PCR Not Detected (NotDetected) C. pneumoniae DNA (PCR) Not Detected (NotDetected) Coronavirus OC43 (PCR) Not Detected (NotDetected) Coronavirus HKU1 (PCR) Not Detected (NotDetected) Coronavirus 229E (PCR) Not Detected (NotDetected) SARS-CoV-2 (PCR) Not Detected (NotDetected) Coronavirus NL63 (PCR) Not Detected (NotDetected) Human Metapneumovir PCR Not Detected (NotDetected) Influenza Type A (PCR) Not Detected (NotDetected) Influenza Type B (PCR) Not Detected (NotDetected) M. pneumoniae (PCR) Not Detected (NotDetected) Parainfluenza 1 (PCR) Not Detected (NotDetected) Parainfluenza 2 (PCR) Not Detected (NotDetected) Parainfluenza 3 (PCR) Not Detected (NotDetected) Parainfluenza 4 (PCR) Not Detected (NotDetected) RSV (PCR) Not Detected (NotDetected) Entero/Rhino (PCR) Not Detected (NotDetected) Administered Medications Magnesium Sulfate/Dextrose (Magnesium Sulfate / D5w) 1 gm in 100 mls @ 50 mls/hr IV Q2H KENDRA Stop: 10/06/23 08:59 Last Admin: 10/06/23 05:17 Dose: 50 mls/hr Documented By: CELESTE Lactated Ringer's (Lr) 1,000 mls @ 160 mls/hr IV .Q6H15M KENDRA Stop: 11/05/23 06:11 Last Admin: 10/06/23 06:34 Dose: 160 mls/hr Documented By: CELESTE Discontinued Medications Sodium Chloride (Nss) 1,000 mls @ 999 mls/hr IV .Q1H1M ONE Stop: 10/05/23 20:52 Last Infusion: 10/05/23 20:55 Dose: Infused Documented By: Admin: 10/05/23 19:53 Dose: 999 mls/hr Documented By: Acetaminophen (Ofirmev) 1,000 mg in 100 mls @ 400 mls/hr IV NOW STA Stop: 10/06/23 00:14 Last Infusion: 10/06/23 00:31 Dose: Infused Documented By: Admin: 10/06/23 00:14 Dose: 400 mls/hr Documented By: CELESTE Sodium Chloride (Nss) 1,000 mls @ 999 mls/hr IV .Q1H1M ONE Stop: 10/06/23 01:02 Last Infusion: 10/06/23 01:05 Dose: Infused Documented By: Admin: 10/06/23 00:14 Dose: 999 mls/hr Documented By: CELESTE Ciprofloxacin (Cipro / D5w) 400 mg in 200 mls @ 100 mls/hr IV NOW STA; Protocol Stop: 10/06/23 02:48 Last Infusion: 10/06/23 04:00 Dose: Infused Documented By: Admin: 10/06/23 01:05 Dose: 100 mls/hr Documented By: SIOBHAN Ketorolac Tromethamine (Ketorolac Tromethamine 15 Mg/Ml Vial) 15 mg IV NOW STA Stop: 10/05/23 23:23 Last Admin: 10/05/23 23:42 Dose: 15 mg Documented By: CELESTE Ondansetron HCl (Ondansetron Inj 2 Mg/Ml 2 Ml Vial) Confirm Administered Dose 4 mg .ROUTE .STK-MED ONE Stop: 10/05/23 19:49 Last Admin: 10/05/23 19:51 Dose: 4 mg Documented By: Ondansetron HCl (Ondansetron Inj 2 Mg/Ml 2 Ml Vial) 4 mg IV NOW STA Stop: 10/05/23 23:23 Last Admin: 10/05/23 23:42 Dose: 4 mg Documented By: CELESTE Ondansetron HCl (Ondansetron Inj 2 Mg/Ml 2 Ml Vial) 4 mg IV NOW STA Stop: 10/06/23 06:08 Last Admin: 10/06/23 06:11 Dose: 4 mg Documented By: CJ Imaging Data Radiologist's Impression: Renal Ultrasound 10/06/23 00:00 Exam(s): US RENAL EXAM: US Retroperitoneal Complete, Renal CLINICAL HISTORY: Right flank Pain, UTI. TECHNIQUE: Real-time complete ultrasound of the retroperitoneum with image documentation. COMPARISON: No relevant prior studies available. FINDINGS: Right kidney: Mild right pelviectasis. No definitive hydronephrosis. The right kidney measures 11 cm. No stones. Left kidney: The left kidney measures 12.2 cm. No stones. No hydronephrosis. Bladder: Unremarkable as visualized. IMPRESSION: Mild right pelviectasis. No definitive hydronephrosis. Electronically signed by: Mae Maki MD 10/06/23 06:30 AM Discharge Plan Visit Data Chief Complaint: Illness Stated Complaint: FEVER, VOMITING, BODY ACHES ED Provider: Keisha Reyes ED Midlevel Provider: Kira De Los Santos Discharge Problem: Recurrent UTI, Sepsis Patient Disposition: Admitted As Inpatient Discharge Instructions Interventions: ED Discharge Assessment Last Done: 10/06/23 06:12
[2023-10-06] MEDS: CIPROFLOXACIN / D5W 400 MG/200 ML BAG IV STA (01:05)
--- NOTE | 2023-10-06 02:35 | History & Physical Report ---
Date of Service October 06, 2023 Assessment & Plan (1) Pyelonephritis: (2) Recurrent UTI: (3) Sepsis: Plan Lorin is a 23F w/ PMH of asthma and syncope who presents with concern of generalized illness and was found to have a complicated UTI. Sepsis 2/2 R Pyelonephritis - Recent presentation for UTI/Pyelo 09/10/23 Reported hx of recurrent UTIs and prior pyelonephritis Patient states 2-3 UTIs per year - SIRS + (hypotension, tachycardia, leukocytosis) with presumed renal source - Clinical dx of pyelonephritis based on fever (103 w/o Tylenol), nausea/vomiting, and CVA tenderness - Blood and urine cultures pending - Ordered STAT CTAP - Started on Cefepime on admission (had received dose of Ciprofloxacin) - Received 2L NSS in ED, fluid resuscitation continued with LR @ 160 for 1.5 x mIVF - Pain/fever management ongoing w/ Tylenol & Ibuprofen - Nausea management w/ Zofran PRN Hypomagnesemia - Repleted Chronic Conditions: - Asthma: no home medications - Anxiety/Depression: continue Paroxetine Code: Full Diet: Regular in AM IVF: 1.5 x mIVF Dispo: PCU/Tele for sepsis History of Present Illness Chief Complaint: Generalized Illness Primary Care Provider: Eveline Morrison DO Lorin is a 23F w/ PMH of asthma and syncope who presents with concern of generalized illness and was found to have a complicated UTI. HPI: Presented to ED because she was throwing up and had a fever at home of 103 (last took Tylenol for fever at 3PM). Symptoms started this morning, progressed as the day went on. Was having a headache, but then developed right back, flank, and periumbilical/suprapubic abdominal pain. Has had a few kidney infections in the past, last infection was one month ago. She completed outpatient antibiotics and felt back to normal for a few weeks, but symptoms recurred today. Getting urinary tract infections 2-3 times per year and has for many years. Saw a Urologist years ago, no interventions at that time. At present, has no burning or pressure when urinating. No history of kidney stones. Denies hematuria. No changes in diet, hydrating and eating well. No chest pain or dyspnea. Increased dizziness, w/o lightheadedness or syncope. Pedro is currently sexually active, but states no chance shes as she is using contraception consistently. Patient is a [employer] in [place], went to undergraduate at [employer]. Moved from [place] for schooling, family is still there. Boyfriend lives in [place] and is her support system. Allergies Allergy/AdvReac Type Severity Reaction Status Date / Time No Known Allergies Allergy Verified 09/10/23 19:10 Home Medications Medication Instructions Recorded Confirmed Type acetaminophen 500 mg tablet 1,000 mg (2 x 500 mg) PO Q6H PRN 10/02/22 10/05/23 Rx (Tylenol Extra Strength) fever or pain #1 tab ascorbic acid (vitamin C) 500 mg 500 mg PO DAILY 09/10/23 10/05/23 History tablet (Vitamin C) ibuprofen 200 mg tablet 400 mg PO Q6H PRN Fever Or Pain 09/10/23 10/05/23 History multivitamin 1 tab PO DAILY 09/10/23 10/05/23 History paroxetine HCl 20 mg tablet 20 mg PO DAILY 09/10/23 10/05/23 History Past Med/Surg History Problem List (Updated 10/06/23 @ 06:52 by Kira De Los Santos PA-C) Sepsis (Acute) Recurrent UTI (Acute) Asthma Family history of sudden in mother Syncope Impacted tooth Medical History Family history of early sudden Concussion Ataxia Head injury Achilles tendon injury large cut to the achilles requiring surgery; right side Vertigo Syncope and collapse Surgical History Hx of external ear surgery pinning / repositioning b/l ears Family History Mother , age 36; autopsy suggested arrhythmia as cause of Sudden cardiac Uncle , Maternal uncle; age 45; had pacemaker, then from arrhythmia? 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 other: graduated from [employer]; lives in [place]; 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 Feels Safe at Home: Yes Do you think of yourself as: straight/heterosexual Sexual Activity: has been sexually active within the last 12 months Assistive Devices: None Physical Exam Physical Exam: Gen: NAD, somnolent, intermittently falling asleep HEENT: Supple, no LAD, no thyromegaly, no JVD Resp:Non-labored, no wheezing/rhonchi/rales, CTAB CV:tachycardic, regular rhythm, normal S1/S2, no M/R/G Abd: Soft, non-distended, suprapubic/periumbilical TTP, normoactive bowels, no masses, R CVA TTP Extr: 2+ dp bilaterally, no edema Skin: No rashes lesions or erythema Results & Data Results & Data Vital Signs (Past 12 Hours) Vital Signs Temp Pulse Pulse Resp BP BP Pulse Ox 10/06/23 02:01 37.4 C 92 H 21 103/58 L 95 10/06/23 01:00 104 H 21 96 10/06/23 00:33 38.7 C H 106 H 21 106/67 95 10/06/23 00:18 129 H 19 97 10/06/23 00:07 39.1 C H 118 H 22 104/60 96 10/06/23 00:07 118 H 22 96 10/05/23 23:45 121 H 10/05/23 23:41 39.4 C H 122 H 22 109/67 97 10/05/23 19:07 37.8 C H 131 H 16 108/68 94 O2 Del Method 10/06/23 02:01 Room Air 10/06/23 01:00 Room Air 10/06/23 00:33 Room Air 10/06/23 00:18 Room Air 10/06/23 00:07 Room Air 10/06/23 00:07 Room Air 10/05/23 23:45 10/05/23 23:41 Room Air 10/05/23 19:07 Room Air Supervising Physician Co-Signing Physician Notes Attending addendum: I have physically seen this patient, have supervised the medical residents activities, and agree with the H&P unless as otherwise noted. Assessment and Plan: Recurrent urinary tract infection/sepsis due to right-sided pyelonephritis- Reports averaging 2-3 urinary tract infections yearly 09/10/2023 E. coli UTI resistant to ampicillin and cefazolin Follow urine culture and sensitivity Follow blood culture and sensitivity Order CT scan abdomen and pelvis Received Cipro 400 mg IV from the ED Cefepime 2 g IV every 8 hours Status post 2 L normal saline bolus from the ED LR at 160 for an additional 1.5 L Acetaminophen 650 mg by mouth every 6 hours as needed for mild pain or fever Zofran 4 mg IV every 6 hours as needed Hypomagnesemia- Magnesium 1.5 on admission Replace IV, recheck laboratories in a.m. Remaining orders and notations as noted Resident Activity Tracking Resident Involvement: Resident Care Provided Care Provided: Adult Hospital Medicine
[2023-10-06] MEDS: MAGNESIUM SULFATE / D5W 1 GM/100 ML BAG IV SCH (05:17)
[2023-10-06] MEDS: ONDANSETRON INJ 2 MG/ML 2 ML VIAL IV STA (06:11)
[2023-10-06] MEDS ORDERED: POLYETHYLENE (MIRALAX) 17 GM PACK PO PRN (06:12)
[2023-10-06] MEDS ORDERED: IBUPROFEN 200 MG TAB PO PRN (06:12)
--- NOTE | 2023-10-06 06:29 | Urology Consultation ---
Date of Consultation October 06, 2023 Assessment & Plan (1) Pyelonephritis: The patient has been admitted on the hospitalist service. Her current treatment includes the following: The patient is being hydrated with intravenous fluids She is receiving broad-spectrum antibiotics in form of cefepime Antiemetics have been provided Antipyretics have been provided She has had blood and urine culture sent. These are pending and these results can be followed for and antibiotics be tailored based on these results The patient has had a CT scan of the abdomen pelvis ordered and these study is pending Urology has been asked to see this patient Due to her recurrent urinary tract infections to see if there is a possible congenital contribution. From a urologic perspective we recommend the following: Agree with the above treatment with fluids, antibiotics, and culture data Will await results of the CT scan that has been ordered to see if there are any readily identifiable anatomic abnormalities with further recommendations to follow History of Present Illness Reason for Consultation: Pyelonephritis Attending Physician: Adrian Bowling MD History of Present Illness This is a 23-year-old female who presented to the emergency department secondary to fevers, right flank pain and dysuria. Patient says that the symptoms started approximately 24 hours ago. Patient does note that she presently has right flank pain and dysuria. She denies any hematuria. She notes that she typically gets 2-3 urinary tract infections per year but is never had any diagnosis of kidney stones. The patient also notes that she has never been evaluated by urologist. The patient says that when she does urinate she typically does not have any trouble with her urine stream. Since arrival to the emergency department the patient has had labs which I independent reviewed. CBC reveals white blood cell count was elevated 15.8. Hemoglobin and hematocrit as well as the platelet count were normal. Chemistry profile showed sodium was 135 with a normal potassium. Her BUN and creatinine were both normal. Urinalysis showed cloudy urine which was positive for nitrites as well as 1+ leukocyte Estrace. She had pyuria with 21-50 white blood cells per high-power field and 4+ bacteria. A test was negative. The patient did have a renal ultrasound which showed some mild right pelvicectasis without definitive hydronephrosis. Patient's past records were reviewed and she did have a urine culture that grew E. coli on 09/10/2023. This organism was noted to be resistant to ampicillin and have intermediate sensitivities to Unasyn and cefepime but was otherwise pansensitive. At the time of my interview she was resting comfortably in bed and she was in no distress Allergies Allergy/AdvReac Type Severity Reaction Status Date / Time No Known Allergies Allergy Verified 09/10/23 19:10 Home Medications Medication Instructions Recorded Confirmed Type acetaminophen 500 mg tablet 1,000 mg (2 x 500 mg) PO Q6H PRN 10/02/22 10/05/23 Rx (Tylenol Extra Strength) fever or pain #1 tab ascorbic acid (vitamin C) 500 mg 500 mg PO DAILY 09/10/23 10/05/23 History tablet (Vitamin C) ibuprofen 200 mg tablet 400 mg PO Q6H PRN Fever Or Pain 09/10/23 10/05/23 History multivitamin 1 tab PO DAILY 09/10/23 10/05/23 History paroxetine HCl 20 mg tablet 20 mg PO DAILY 09/10/23 10/05/23 History Patient History Medical History Family history of early sudden Concussion Ataxia Head injury Achilles tendon injury large cut to the achilles requiring surgery; right side Vertigo Syncope and collapse Surgical History Hx of external ear surgery pinning / repositioning b/l ears Family History Mother , age 36; autopsy suggested arrhythmia as cause of Sudden cardiac Uncle , Maternal uncle; age 45; had pacemaker, then from arrhythmia? 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 There is no rebound tenderness or guarding. There is no pain with palpation Musculoskeletal: No calf tenderness Skin: no rashes Neurologic: moves all extremities Psychiatric: A+Ox3, euthymic affect Results & Data Vital Signs (Past 12 Hours) Vital Signs Temp Pulse Pulse Resp BP BP Pulse Ox 10/06/23 06:00 118 H 16 103/51 L 99 10/06/23 05:17 37.7 C H 10/06/23 04:00 85 16 94/72 L 98 10/06/23 03:47 75 10/06/23 02:54 36.9 C 10/06/23 02:01 37.4 C 92 H 21 103/58 L 95 10/06/23 01:00 104 H 21 96 10/06/23 00:33 38.7 C H 106 H 21 106/67 95 10/06/23 00:18 129 H 19 97 10/06/23 00:07 39.1 C H 118 H 22 104/60 96 10/06/23 00:07 118 H 22 96 10/05/23 23:45 121 H 10/05/23 23:41 39.4 C H 122 H 22 109/67 97 10/05/23 19:07 37.8 C H 131 H 16 108/68 94 O2 Del Method 10/06/23 06:00 Room Air 10/06/23 05:17 10/06/23 04:00 Room Air 10/06/23 03:47 10/06/23 02:54 10/06/23 02:01 Room Air 10/06/23 01:00 Room Air 10/06/23 00:33 Room Air 10/06/23 00:18 Room Air 10/06/23 00:07 Room Air 10/06/23 00:07 Room Air 10/05/23 23:45 10/05/23 23:41 Room Air 10/05/23 19:07 Room Air PG Care Time/CCT Total # of Minutes Spent Total Time Spent with Patient: Total time spent is greater than 50% in coordination of care (as documented) at patient's floor/unit and/or counseling patient: Coding Level of Care Code 04456 IN/OBS CONSULT LVL 5,80M Diagnoses Pyelonephritis N12
--- NOTE | 2023-10-06 06:32 | Ultrasound Report ---
Exam(s): US RENAL EXAM: US Retroperitoneal Complete, Renal CLINICAL HISTORY: Right flank Pain, UTI. TECHNIQUE: Real-time complete ultrasound of the retroperitoneum with image documentation. COMPARISON: No relevant prior studies available. FINDINGS: Right kidney: Mild right pelviectasis. No definitive hydronephrosis. The right kidney measures 11 cm. No stones. Left kidney: The left kidney measures 12.2 cm. No stones. No hydronephrosis. Bladder: Unremarkable as visualized. IMPRESSION: Mild right pelviectasis. No definitive hydronephrosis. Electronically signed by: Mae Maki MD 10/06/23 06:30 AM
[2023-10-06] MEDS: LACTATED RINGER'S 1,000 ML IV SCH (06:34)
--- NOTE | 2023-10-06 07:31 | XRay Report ---
KUB HISTORY: right flank pain, fever COMPARISON: Abdomen and pelvis CT 09/10/2023. FINDINGS: The bowel gas pattern is unremarkable. There are no dilated loops of small bowel to suggest an obstruction. No renal calculi. No ureteral calculi. No pneumoperitoneum or pneumatosis. IMPRESSION: No renal or ureteral stones. ACT 112: Negative or not required by law. Electronically signed by: Duc Corcoran M.D. 10/06/2023 7:29 AM
[2023-10-06] MEDS: ACETAMINOPHEN 500 MG TAB PO PRN (07:39)
[2023-10-06] MEDS: CEFEPIME 2,000 MG in SYRINGE 0 ML IV SCH (07:39)
[2023-10-06] MEDS: PARoxetine HCL 20 MG TAB PO SCH (07:39)
[2023-10-06 07:52] LABS: Hematocrit (blood only) 34.4 % (37.0-47.0); Hemoglobin 11.7 g/dl (12.0-16.0); Mean Corpuscular Hemoglobin 29.9 pg (25.0-34.0); Mean Platelet Volume 9.8 fL (9.4-12.4); Platelet Count 142 K/uL (130-400); RDW Coefficient of Variation 12.6 % (11.5-14.5); RDW Standard Deviation 40.8 fL (36.4-46.3); Red Blood Count 3.91 M/uL (4.20-5.40); White Blood Count 14.06 K/ul (4.8-10.8)
[2023-10-06 07:55] LABS: Albumin Globulin Ratio 1.5 (0.9-2); Albumin Level 3.7 gm/dl (3.4-5.0); BUN Creatinine Ratio 13.6 (10-20); Bilirubin,Total 0.6 mg/dl (0.2-1.0); Calcium 8.1 mg/dl (8.6-10.3); Creatinine Clr Calc Pharmacy 114.8 ml/min; Est GFR (Non-African American) 100.9 ml/min; Globulin 2.5 gm/dl (2.5-4.0); Potassium 3.7 mmol/L (3.5-5.1); Total Protein 6.2 gm/dl (6.0-8.3)
--- NOTE | 2023-10-06 08:04 | XRay Report ---
SINGLE VIEW CHEST CLINICAL HISTORY: Sepsis FINDINGS: An AP, portable, upright chest radiograph is compared to study dated 02/18/2023. The cardio mediastinal silhouette is unremarkable. The lungs and pleural spaces are clear. No pneumothorax is se en. The bony thorax is grossly intact. IMPRESSION: No active disease in the chest. ACT 112: Negative or not required by law. Electronically signed by: Venu Bowers M.D. 10/06/2023 8:03 AM
--- NOTE | 2023-10-06 08:09 | CT Scan Report ---
CT SCAN OF THE ABDOMEN AND PELVIS WITHOUT IV CONTRAST CLINICAL HISTORY: Generalized abdominal pain. Sepsis. COMPARISON STUDY: Abdominal CT dated 09/10/2023 TECHNIQUE: CT scan of the abdomen and pelvis is performed from the lung bases to the proximal femora. Images are reviewed in the axial, sagittal, and coronal planes. IV contrast was not administered for this examination. Note that the examination was performed in suboptimal fashion without oral and IV contrast. A dose lowering technique was utilized adhering to the principles of ALARA. CT DOSE: 704.13 mGy.cm FINDINGS: Lung bases: The heart is normal in size and without pericardial effusion. The lung bases are clear. Liver: The unenhanced liver is normal in size, contour, and attenuation. There is no intrahepatic jyothi iary ductal dilatation. Gallbladder: Unremarkable. Spleen: Normal in size and attenuation. Pancreas: Unremarkable. Adrenal glands: Unremarkable. Kidneys: The unenhanced kidneys are normal in size and without hydronephrosis. No renal calculi are i dentified and there is no ureteral stone. There is no evidence of contour deforming renal mass lesion . There is mild right-sided perinephric stranding. Abdominal vasculature: The abdominal aorta is normal in course and caliber. Bowel: There is no bowel obstruction. The appendix is well-visualized and normal. Peritoneum: There is no intraperitoneal free air or abdominal ascites. There is a fat-containing umbi lical hernia. Lymphadenopathy: None. Pelvic viscera: The bladder, uterus, and adnexa are normal as visualized. Skeletal structures: No lytic or blastic lesions are seen. IMPRESSION: 1. There is nonspecific right-sided perinephric stranding. Correlate with clinical findings and urina lysis. 2. No renal calculi are identified and there is no hydronephrosis. 3. Additional findings as above. ACT 112: Negative or not required by law. Electronically signed by: Venu Bowers M.D. 10/06/2023 8:07 AM
--- NOTE | 2023-10-06 08:14 | Hospitalist Progress Note ---
Date of Service October 06, 2023 Assessment & Plan (1) Recurrent UTI: (2) Sepsis: Plan Lorin is a 23F w/ PMH of asthma and syncope who presents with concern of generalized illness and was found to have a complicated UTI. Sepsis 2/2 R Pyelonephritis - hx of recurrent UTIs and prior pyelonephritis Recent presentation for UTI/Pyelo 09/10/23 Patient states 2-3 UTIs per year - SIRS + hypotension, tachycardia, leukocytosis with presumed renal source - Clinical dx of pyelonephritis based on fever (103 w/o Tylenol), nausea/vomiting, and CVA tenderness - Blood and urine cultures pending - CT Abdomen:. There is nonspecific right-sided perinephric stranding. No renal calculi are identified and there is no hydronephrosis. - Renal US: Mild right pelviectasis - IV Cefepime - 500 ml of NSS today, continue fluid resuscitation continued with LR @ 160 for 1.5 x mIVF - Urology consulted, aprec recommendations - Pain/fever management ongoing w/ Tylenol & Ibuprofen - Nausea management w/ Zofran PRN Hypomagnesemia - Repleted - Follow BMP Chronic Conditions: - Asthma: no home medications - Anxiety/Depression: continue Paroxetine Code: Full Diet: Regular in AM IVF: 1.5 x mIVF Dispo: PCU/Tele for sepsis Admission and Anticipated Discharge Date Admission Date: October 06, 2023 Supervising Physician Co-Signing Physician Notes Attending attestation Pt seen and examined in concert with Dr. De La Garza. In agreement with the documented findings as noted in the resident documentation with any exceptions or additions as noted here. Stable flank pain, fatigue and fevers adequately controlled on present m edicationr regimen. On examination, S1/S2 nl RRR no MCG. CTAB. Abd nondistended, +ve CVA TTP Sepsis in the setting of pyelonephritis - continue cefepime and follow up cultures. Continue IV hydration, tachycardia has been fluid responsive but persistent. Else see resident documentation as noted. Subjective Lorin was seen this am found awake in NAD. Only complained is headaches. Denied any back pain, chest pain, SOB, suprapubic pain or any other symptoms. She cotninue to has tachycardia and soft BPs. 1/2 L NSS bolus given this morning. Last fevers this am. Review of Systems Review of Systems: as per HPI Physical Exam Constitutional: WD/WN, vitals as above ENMT: external ear and nose normal, oropharynx normal Respiratory: normal respiratory effort, lungs clear to auscultation Gastrointestinal (Abdomen): normal bowel sounds, soft, nontender, no hepatosplenomegaly R CVA tenderness, no supropubic tenderness Skin: no rashes, warm and dry Results & Data Results & Data Vital Signs (Past 12 Hours) Vital Signs Temp Pulse Pulse Resp BP Pulse Ox O2 Del Method 10/06/23 07:47 122 H 18 96 Room Air 10/06/23 07:30 39.4 C H 119 H 18 105/63 97 Room Air 10/06/23 07:30 112 H 10/06/23 06:00 118 H 16 103/51 L 99 Room Air 10/06/23 05:17 37.7 C H 10/06/23 04:00 85 16 94/72 L 98 Room Air 10/06/23 03:47 75 10/06/23 02:54 36.9 C 10/06/23 02:01 37.4 C 92 H 21 103/58 L 95 Room Air 10/06/23 01:00 104 H 21 96 Room Air 10/06/23 00:33 38.7 C H 106 H 21 106/67 95 Room Air 10/06/23 00:18 129 H 19 97 Room Air 10/06/23 00:07 39.1 C H 118 H 22 104/60 96 Room Air 10/06/23 00:07 118 H 22 96 Room Air 10/05/23 23:45 121 H 10/05/23 23:41 39.4 C H 122 H 22 109/67 97 Room Air Resident Activity Tracking Resident Involvement: Resident Care Provided Care Provided: Adult Hospital Medicine
[2023-10-06] MEDS: SODIUM CHLORIDE 0.9% 500 ML IV ONE (11:57)
--- NOTE | 2023-10-06 12:45 | Electrocardiogram Report ---
Test Reason : Blood Pressure : / mmHG Vent. Rate : 127 BPM Atrial Rate : 127 BPM P-R Int : 124 ms QRS Dur : 074 ms QT Int : 294 ms P-R-T Axes : 074 003 035 degrees QTc Int : 427 ms Sinus tachycardia Possible Left atrial enlargement Low voltage QRS Borderline ECG When compared with ECG of 18-FEB-2023 19:05, Vent. rate has increased BY 59 BPM QRS voltage has decreased Nonspecific T wave abnormality now evident in Inferior leads Confirmed by Clark Souza ([id number]) on 10/06/2023 12:44:52 PM Referred By: REFERRED SELF Confirmed By:Rico Souza
[2023-10-06] MEDS: ONDANSETRON INJ 2 MG/ML 2 ML VIAL IV PRN (13:25)
--- NOTE | 2023-10-06 16:55 | Urology Progress Note ---
Date of Service October 06, 2023 Assessment & Plan (1) Pyelonephritis: (2) UTI (urinary tract infection): Plan Follow-up for UTI/Pyelo Febrile this morning, normotensive. Labs-WBC 14, hemoglobin 11, creatinine 0.81. Urine and blood cultures pending. Voiding spontaneously, continue to monitor. Bladder scan PRN. CT A/P reviewed Nonspecific right-sided perinephric stranding, no renal calculi, no ureteral calculi, or hydronephrosis. No acute intervention warranted. Continue antibiotic therapy and tailor as culture data becomes available. Continue supportive care. Urology will follow along. Admission and Anticipated Discharge Date Admission Date: October 06, 2023 Subjective Patient seen at bedside this a.m. Awake, resting bed on arrival No acute distress Febrile this morning Voiding without issue Review of Systems Constitutional: as per Subjective / HPI Genitourinary: as per Subjective / HPI Physical Exam Constitutional: no acute distress Respiratory: no respiratory distress and no labored breathing Neurologic: moves all extremities and awake Psychiatric: A+Ox3, euthymic affect Results & Data Vital Signs (Past 12 Hours) Vital Signs Temp Pulse Pulse Resp BP Pulse Ox O2 Del Method 10/06/23 15:39 37.7 C H 110 H 18 110/76 96 Room Air 10/06/23 09:14 37.5 C 10/06/23 07:47 122 H 18 96 Room Air 10/06/23 07:30 39.4 C H 119 H 18 105/63 97 Room Air 10/06/23 07:30 112 H 10/06/23 06:00 118 H 16 103/51 L 99 Room Air 10/06/23 05:17 37.7 C H PG Care Time/CCT Total # of Minutes Spent Total Time Spent with Patient: Total time spent is greater than 50% in coordination of care (as documented) at patient's floor/unit and/or counseling patient: Coding Level of Care Code None Diagnoses Pyelonephritis N12 UTI (urinary tract infection) N30.00 Hematuria presence: without hematuria Urinary tract infection type: acute cystitis (2) UTI (urinary tract infection) Hematuria presence: without hematuria Urinary tract infection type: acute cystitis Qualified Code(s): N30.00 - Acute cystitis without hematuria
--- NOTE | 2023-10-06 21:43 | Billing Data ---
Date of Service October 06, 2023 Coding Level of Care Code 20684 INT INP/OBS CARE
[2023-10-06] MEDS: PROCHLORPERAZINE 5 MG in SYRINGE 4 ML IV PRN (22:40)
[2023-10-06] MEDS: ACETAMINOPHEN 1,000 MG/100 ML VIAL IV PRN (23:03)
[2023-10-07 06:58] LABS: Basophils # (auto) 0.03 K/uL (0.00-0.20); Basophils % (auto) 0.2 %; Eosinophils # (auto) 0.01 K/uL (0.00-0.50); Eosinophils % (auto) 0.1 %; Immature Granulocytes # (auto) 0.05 K/uL (0.01-0.20); Immature Granulocytes % (auto) 0.4 %; Lymphocytes # (auto) 2.33 K/uL (1.20-3.40); Lymphocytes % (auto) 17.8 %; Mean Corpuscular Hemoglobin 30.1 pg (25.0-34.0); Mean Corpuscular Hgb Conc 33.3 g/dL (32.0-36.0); Mean Corpuscular Volume 90.4 fL (80.0-100.0); Mean Platelet Volume 10.1 fL (9.4-12.4); Monocytes # (auto) 1.46 K/uL (0.11-0.59); Monocytes % (auto) 11.1 %; Neutrophils # (auto) 9.22 K/uL (1.40-6.50); Neutrophils % (auto) 70.4 %; Platelet Count 141 K/uL (130-400); RDW Coefficient of Variation 12.6 % (11.5-14.5); RDW Standard Deviation 41.7 fL (36.4-46.3); Red Blood Count 3.65 M/uL (4.20-5.40)
--- NOTE | 2023-10-07 07:08 | Hospitalist Progress Note ---
Date of Service October 07, 2023 Assessment & Plan (1) Recurrent UTI: (2) Sepsis: Plan Lorin is a 23F w/ PMH of asthma and syncope who presents with concern of generalized illness and was found to have a complicated UTI/ Pyelo Sepsis 2/2 R Pyelonephritis - hx of recurrent UTIs and prior pyelonephritis (2-3 UTIs per year) - SIRS + hypotension, tachycardia, leukocytosis with presumed renal source - Clinical dx of pyelonephritis based on fever (103 w/o Tylenol), nausea/vomiting, and CVA tenderness - Blood culture remained negative for 24 hrs - Urine culture: E Coli - CT Abdomen:. There is nonspecific right-sided perinephric stranding. No renal calculi are identified and there is no hydronephrosis. - Renal US: Mild right pelviectasis - s/pIV Cefepime - Will transition to Bactrim PO - Fluid resuscitation continued with LR @ 160 for 1.5 x mIVF - Urology consulted, aprec recommendations - Pain/fever management ongoing w/ Tylenol & Ibuprofen - Nausea management w/ Zofran PRN + Campazine Hypomagnesemia - Repleted - Follow BMP/Mg/Phosphorus Cough - No other symptoms. Possible Atelectasis - CXR: Negative for acute findings - spirometer ordered - will continue to monitor Chronic Conditions: - Asthma: no home medications. stable - Anxiety/Depression: continue Paroxetine Code: Full Diet: Regular IVF: 1.5 x mIVF DVT prophylaxis: Lovenox q24HR Dispo: PCU/Tele for sepsis Admission and Anticipated Discharge Date Admission Date: October 06, 2023 Supervising Physician Co-Signing Physician Notes Attending attestation Pt seen and examined in concert with Dr. De La Garza. In agreement with the documented findings as noted in the resident documentation with any exceptions or additions as noted here. Gradually improving fatigue with ongoing subjective fevers, fatigue and flank pain. On examination, S1/S2 nl RRR no MCG. CTAB. Abd NT/ND BS+ve w/ CVA TTP improved. Sepsis with pyelonephritis - improving with IV hydration and abx. Per cultures can transition to bactrim DS and monitor VS for improving tachycardia. Else see resident documentation as noted. Subjective Lorin seen this am, found awake in NAD. Refers feeling tired and some sporadic cough. chills present overnight. Patient continue to be with mild tachycardia and soft BPs. Currently on IV Cefepime Review of Systems Review of Systems: as per HPI Physical Exam Constitutional: WD/WN, vitals as above ENMT: external ear and nose normal, oropharynx normal Respiratory: normal respiratory effort, lungs clear to auscultation Gastrointestinal (Abdomen): normal bowel sounds, soft, nontender, no hepatosplenomegaly Skin: no rashes, warm and dry Results & Data Results & Data Vital Signs (Past 12 Hours) Vital Signs Temp Pulse Pulse Resp BP Pulse Ox O2 Del Method 10/07/23 02:28 36.8 C 72 20 92/59 L 96 Room Air 10/06/23 23:50 37.8 C H 10/06/23 23:44 111 H 10/06/23 23:02 38.5 C H 128 H 22 109/72 98 Room Air 10/06/23 19:48 36.9 C 79 16 95/64 L 97 Room Air Resident Activity Tracking Resident Involvement: Resident Care Provided Care Provided: Adult Hospital Medicine
[2023-10-07 07:24] LABS: BUN Creatinine Ratio 10.1 (10-20); Calcium 8.2 mg/dl (8.6-10.3); Creatinine Clr Calc Pharmacy 117.7 ml/min; Est GFR (African American) 120.6 ml/min; Potassium 3.8 mmol/L (3.5-5.1)
[2023-10-07 08:07] LABS: Magnesium 2.2 mg/dl (1.7-2.4)
[2023-10-07] MEDS: ACETAMINOPHEN 1,000 MG/100 ML VIAL IV SCH (11:40)
[2023-10-07] MEDS: ENOXAPARIN INJ 40 MG/0.4 ML SYR SQ SCH (12:54)
[2023-10-07] MEDS: SULFAMETHOXAZOLE/TRIMETHOPRIM DS 800/160MG TAB PO SCH (13:05)
--- NOTE | 2023-10-07 13:43 | Urology Progress Note ---
Date of Service October 07, 2023 Assessment & Plan (1) UTI (urinary tract infection): Plan Follow-up for UTI/Pyelo Currently afebrile, Labs-WBC 13.10, hemoglobin 11, creatinine 0.79. Urine culture showed E. coli Blood cultures pending Voiding spontaneously can bladder scan PRN. No further intervention warranted. Continue antibiotic therapy and tailor as as needed- currently on Bactrim Continue supportive care Urology will s/o- please reconsult if change in patient's condition. Admission and Anticipated Discharge Date Admission Date: October 06, 2023 Subjective Patient seen at bedside awake and comfortably No acute distress Intermittent 6 out of 10 lower abdominal pain that is controlled by Tylenol Denies dysuria, gross hematuria, chills, changes to baseline urinary symptoms Review of Systems Constitutional: as per Subjective / HPI Genitourinary: as per Subjective / HPI Physical Exam Constitutional: well developed and well nourished; no acute distress Respiratory: normal respiratory effort and able to speak in complete sentences Musculoskeletal: Extremities: extremities normal to inspection Psychiatric: Orientation: alert and oriented x 3 Results & Data Vital Signs (Past 12 Hours) Vital Signs Temp Pulse Pulse Resp BP Pulse Ox O2 Del Method 10/07/23 10:48 36.5 C 91 H 16 100/64 96 Room Air 10/07/23 08:00 Room Air 10/07/23 07:53 99 H 104/67 10/07/23 07:06 73 10/07/23 07:06 37.0 C 83 16 88/57 L 97 Room Air 10/07/23 02:28 36.8 C 72 20 92/59 L 96 Room Air PG Care Time/CCT Total # of Minutes Spent Total Time Spent with Patient: Total time spent is greater than 50% in coordination of care (as documented) at patient's floor/unit and/or counseling patient: Coding Level of Care Code 06174 SUB INP/OBS CARE 04/22MIN Diagnoses UTI (urinary tract infection) N30.00 Hematuria presence: without hematuria Urinary tract infection type: acute cystitis (1) UTI (urinary tract infection) Hematuria presence: without hematuria Urinary tract infection type: acute cystitis Qualified Code(s): N30.00 - Acute cystitis without hematuria
--- NOTE | 2023-10-07 16:18 | XRay Report ---
TWO VIEW CHEST CLINICAL HISTORY: Cough. FINDINGS: PA and lateral chest radiographs are compared to study dated 10/06/2023. An electronic devic e projects over the left lower chest. The cardiomediastinal silhouette is unremarkable. There is mil d elevation of the right hemidiaphragm. The lungs and pleural spaces are clear. There is no pneumotho rax. The bony thorax appears intact. IMPRESSION: No active disease in the chest. ACT 112: Negative or not required by law. Electronically signed by: Venu Bowers M.D. 10/07/2023 4:17 PM
[2023-10-07 23:17] VITALS: O2SAT 96
[2023-10-08 06:59] LABS: Basophils # (auto) 0.04 K/uL (0.00-0.20); Basophils % (auto) 0.4 %; Eosinophils # (auto) 0.05 K/uL (0.00-0.50); Eosinophils % (auto) 0.5 %; Hematocrit (blood only) 31.7 % (37.0-47.0); Hemoglobin 10.5 g/dl (12.0-16.0); Immature Granulocytes # (auto) 0.03 K/uL (0.01-0.20); Immature Granulocytes % (auto) 0.3 %; Lymphocytes # (auto) 2.49 K/uL (1.20-3.40); Lymphocytes % (auto) 27.2 %; Mean Corpuscular Hemoglobin 30.1 pg (25.0-34.0); Mean Corpuscular Hgb Conc 33.1 g/dL (32.0-36.0); Mean Corpuscular Volume 90.8 fL (80.0-100.0); Mean Platelet Volume 10.4 fL (9.4-12.4); Monocytes # (auto) 0.82 K/uL (0.11-0.59); Monocytes % (auto) 8.9 %; Neutrophils # (auto) 5.74 K/uL (1.40-6.50); Neutrophils % (auto) 62.7 %; Platelet Count 152 K/uL (130-400); RDW Coefficient of Variation 12.8 % (11.5-14.5); RDW Standard Deviation 42.2 fL (36.4-46.3); Red Blood Count 3.49 M/uL (4.20-5.40); White Blood Count 9.17 K/ul (4.8-10.8)
[2023-10-08 07:20] LABS: BUN Creatinine Ratio 8.5 (10-20); Calcium 8.2 mg/dl (8.6-10.3); Creatinine Clr Calc Pharmacy 113.4 ml/min; Est GFR (African American) 115.3 ml/min; Est GFR (Non-African American) 99.5 ml/min; Potassium 3.8 mmol/L (3.5-5.1)
[2023-10-08 07:24] VITALS: RESP 16
[2023-10-08] MEDS ORDERED: ACETAMINOPHEN 1,000 MG/100 ML VIAL IV PRN (09:41)
[2023-10-08 10:47] VITALS: BP 118/76; PULSE 83; TEMP 98.4
[2023-10-08] MEDS: ACETAMINOPHEN 500 MG TAB PO PRN (11:49)
--- NOTE | 2023-10-08 11:54 | Discharge Summary ---
Date of Service October 08, 2023 Admission HPI Per Admitting Provider Lorin is a 23F w/ PMH of asthma and syncope who presents with concern of generalized illness and was found to have a complicated UTI. HPI: Presented to ED because she was throwing up and had a fever at home of 103 (last took Tylenol for fever at 3PM). Symptoms started this morning, progressed as the day went on. Was having a headache, but then developed right back, flank, and periumbilical/suprapubic abdominal pain. Has had a few kidney infections in the past, last infection was one month ago. She completed outpatient antibiotics and felt back to normal for a few weeks, but symptoms recurred today. Getting urinary tract infections 2-3 times per year and has for many years. Saw a Urologist years ago, no interventions at that time. At present, has no burning or pressure when urinating. No history of kidney stones. Denies hematuria. No changes in diet, hydrating and eating well. No chest pain or dyspnea. Increased dizziness, w/o lightheadedness or syncope. Pedro is currently sexually active, but states no chance shes as she is using contraception consistently. 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 Moved from [place] [facility] for schooling, family is still there. Boyfriend lives in [place] and is her support system. Principal Diagnosis UTI/ Pyelonephritis Discharge Exam Constitutional WD/WN, vitals as above ENMT external ear and nose normal, oropharynx normal Respiratory normal respiratory effort, lungs clear to auscultation Gastrointestinal (Abdomen) normal bowel sounds, soft, nontender, no hepatosplenomegaly Skin no rashes, warm and dry Discharge Data Allergies Allergy/AdvReac Type Severity Reaction Status Date / Time No Known Allergies Allergy Verified 09/10/23 19:10 Consultations 10/06/23 01:49 ED Decision to Admit Stat 10/06/23 06:12 Consult Urology Routine Ordered Studies 10/06/23 00:00 US Renal Bladder [US renal/blad retro comp] Stat 10/06/23 03:18 CT Abdomen and Pelvis [CT abd pelvis wo con] Stat Hospital Course (1) Recurrent UTI: (2) Sepsis: Plan Lorin is a 23F w/ PMH of asthma and syncope who presents with concern of generalized illness and was found to have a complicated UTI/ Pyelo Sepsis 2/2 R Pyelonephritis - hx of recurrent UTIs and prior pyelonephritis (2-3 UTIs per year) - Presented with SIRS + hypotension, tachycardia, leukocytosis with presumed renal source - resolved - Clinical dx of pyelonephritis based on fever (103 w/o Tylenol), nausea/vomiting, and CVA tenderness - Blood culture: negative. Leukocytosis- resolved. - Urine culture: E Coli resistant to Ampicillin - CT Abdomen:. There is nonspecific right-sided perinephric stranding. No renal calculi are identified and there is no hydronephrosis. - s/pIV Cefepime - Transitioned to Bactrim DS PO - s/p Fluid resuscitation - Urology consulted, aprec recommendations - No intervention now. We re quested a follow up with Urology outpatient - Patient discharge with Bactrim DS 1 tab BID for 14 days in total - Oriented to keep a close follow up with her PCP Cough - No other symptoms. Possible Atelectasis - CXR: Negative for acute findings - Spirometer - Recommended close follow up with her PCP to ensure resolution Hypomagnesemia- resolved Chronic Conditions: - Asthma: no home medications. stable - Anxiety/Depression: continue Paroxetine Total Time Total Time Spent Total Time Spent (In Minutes): 25 minutes Discharge Plan Discharge Items Patient Disposition: Home - Self-Care Reason For Visit: SEPSIS, PYELONEPHRITIS Discharge Diagnosis: UTI/ Pyelonephritis Activity: Per Instructions section Non-emergency contact: Primary Care Provider Call non-emergency contact if: you have any medication questions, your symptoms worsen, your pain is unusual for you and your temperature is above 101 Follow-up/Referrals: Eveline Morrison DO [Primary Care Provider] - Diet: Regular Addtl Attending Provider Instructions: You were admitted in our hospital due to an UTI and Pyelonephritis (infection on your kidneys). You were treated with IV fluids and antibiotics. You will be discharge home today qith the following prescriptions: * Bactrim DS - take 1 tab twice a day for 14 days in total Follow-up appointments: Make a follow-up appointment with your PCP within the next week. It is very important that you follow up with them shortly after discharge from the hospital. Medications: Your medication list has been reviewed and reconciled upon discharge to ensure accuracy and continuity of care. An updated list of all your medications is included with your hospital discharge paperwork. Please review this list closely, and make note of any changes. Take your medications as instructed; do not skip a dose of your medicines. Make sure all of your doctors know every medicine you are taking (including fgjj-kpq-zysytqy medicines, vitamins, and supplements). Call your primary care provider before taking any new medicines (including orsg-nxq-[id number] medicines, vitamins, and supplements), because some of these may interact with your current medications, or may make your symptoms worse. Tell your primary care provider if you cannot afford your medications. CALL 911 OR GO TO THE EMERGENCY DEPARTMENT if you experience any of the following: Sudden, severe abdominal pain or nausea/vomiting Severe chest pain, or chest pain that radiates (moves) to your jaw or arm Sudden, severe shortness of breath or difficulty breathing Thank you for allowing us to participate in your care. Pending Studies at Discharge: No Stand-Alone Forms: My [facility] [employer], Smoking Cessation Medications and DC Order Prescriptions: New sulfamethoxazole-trimethoprim [Bactrim DS] 800-160 mg Tablet 1 tab PO BID 13 Days Qty: 26 0RF Continued acetaminophen [Tylenol Extra Strength] 500 mg Tablet 1,000 mg PO Q6H PRN (Reason: fever or pain) Qty: 1 0RF Rx Instructions: purchase sljr-kek-wtkykat; maximum 3000mg in 24 hours. multivitamin Tablet 1 tab PO DAILY ascorbic acid (vitamin C) [Vitamin C] 500 mg Tablet 500 mg PO DAILY paroxetine HCl 20 mg tablet 20 mg PO DAILY ibuprofen 200 mg Tablet 400 mg PO Q6H PRN (Reason: Fever Or Pain) Discharge Orders: Discharge Order (Routine); Ordered 10/08/23 Ordered By: Yumiko Brown Admission Data Admit Date/Time: 10/06/23 05:41 Attending Provider: Mike Gorman Admit Provider: Shahid Lloyd Primary Care Provider: Eveline Morrison Other Providers: Adrian Bowling; Koko Davis; Juaquin Alegria; Clark Mabry; Radha Kennedy; Nik Ricketts; Nidia Martinez; Debra Nichols; Baron Tovar; Anitha Garay; Turner Geiger; [place] Krishnan; Aashish Byrne. Other Interventions: Discharge Summary Assessment (RN) Last Done: 10/08/23 12:11 Supervising Physician Co-Signing Physician Notes ATTESTATION I also saw the patient and confirmed caputo portions of the history and exam. I agree with the impression and plan in the resident documentation, and as summarized below. Patient feeling better today. Still tired although feels better than yesterday. She is eager to go home today. Does note a non productive cough; no dyspnea. EXAM Remains afebrile NAD. CV RRR Lungs CTA DATA Labs HgB 10.5 BMP unremarkable Imaging CXR 10/06 NAD Micro Urine E. Coli sensitive to Bactrim IMPRESSION & PLAN Pyelonephritis Meets criteria for discharge Discussed s/s which would need return to hospital Complete course of Bactrim Follow up with PCP Off work to at last Wednesday, depending on how she feels Additional per resident documentation Resident Activity Tracking Resident Involvement: Resident Care Provided Care Provided: Adult Hospital Medicine
[2023-10-10 13:21] LABS: A calco-baum cmplx NotReported Not Detected (NotDetected); Bact fragilis Not Reported Not Detected (NotDetected); Blood Culture Id Panel See PCR Comment (NotDetected); C auris Not Reported Not Detected (NotDetected); CTX-M Resistant Gene Not Detected (NotDetected); Calbicans Not Reported Not Detected (NotDetected); Candida glabrata Not Reported Not Detected (NotDetected); Candida krusei Not Reported Not Detected (NotDetected); Cneoformans/gatti Not Reported Not Detected (NotDetected); Cparapsilosis Not Reported Not Detected (NotDetected); E cloacae compx Not Reported Not Detected (NotDetected); Efaecalis Not Reported Not Detected (NotDetected); Efaecium Not Reported Not Detected (NotDetected); Enterobacterales DETECTED (NotDetected); Enterobacterales Not Reported DETECTED (NotDetected); Escherichia coli Not Reported DETECTED (NotDetected); H influenzae Not Reported Not Detected (NotDetected); IMP Resistant Gene Not Detected (NotDetected); K aerogenes Not Reported Not Detected (NotDetected); KPC Resistant Gene Not Detected (NotDetected); Koxytoca Not Reported Not Detected (NotDetected); Kpneumoniae grp Not Reported Not Detected (NotDetected); Lmonocyt Not Reported Not Detected (NotDetected); N meningitidis Not Reported Not Detected (NotDetected); NDM Resistant Gene Not Detected (NotDetected); OXA 48 Like Resistant Gene Not Detected (NotDetected); P aeruginosa Not Reported Not Detected (NotDetected); Proteus spp Not Reported Not Detected (NotDetected); Salmonella spp Not Reported Not Detected (NotDetected); Staph lugdunensis Not Reported Not Detected (NotDetected); Staph spp. Not Reported Not Detected (NotDetected); Staphaureus Not Reported Not Detected (NotDetected); Staphepi Not Reported Not Detected (NotDetected); Stenmaltophilia Not Reported Not Detected (NotDetected); Strep agal(GrpB) Not Reported Not Detected (NotDetected); Strep pneum Not Reported Not Detected (NotDetected); Strep pyog (GrpA) Not Reported Not Detected (NotDetected); Strep spp Not Reported Not Detected (NotDetected); VIM Resistant Gene Not Detected (NotDetected); mcr-1 Colistin Resistant Gene Not Detected (NotDetected)
--- NOTE | 2023-10-10 14:16 | Pharmacy Report ---
ED Pharmacist Progress Note - ED Pharmacist Progress Note Date of Service:: October 10, 2023 Notes:: Received message from ED charge entry clerk re: positive blood culture 1/ gram negative bacilli identified as E. coli on biofire. E. coli isolated in urine culture with sensitivities. Patient was discharged this morning on Bactrim. Did alert [place] hospitalist team to review as they were just discharged from their service this morning. No further ED action at this time.
== END 2023-10-08 12:58 | disposition home or self-care (01) | DRG 872 ==
LOC: ED 18:51 → EDINP 10-06 05:41 → SUATTDRO 10-06 05:41 → 2S 10-06 06:12

== ENCOUNTER 2024-11-05 11:23 | Inpatient (IN) ==
--- NOTE | 2024-11-05 11:55 | Emergency Department Note ---
Impression & Plan Suicidal ideations, Mood disorder ED Provider Note NAME: DONAVAN STEVENSON AGE: 24 SEX: F : 2000 ARRIVES VIA: Walk-In INFORMANT: Patient ED PROVIDER(S): Nba Beltrán DO CHIEF COMPLAINT: Suicidal ideations HPI: Patient is a 24-year-old female with a past medical history of anxiety who presents to the ER as she has just been feeling helpless. She admits to chronic passive suicidal ideations. She has been having issues with her boyfriend and they just recently broke up. Last week she was thinking about killing herself. She took 20 tabs of Tylenol at 325 mg on Wednesday to alleviate the pain but notes at that time she was not doing it to kill her self but had researched the amount of Tylenol to take to kill her self. She denies any belly pain. No nausea, vomiting, or diarrhea. No dysuria, urgency, or frequency. No other exacerbating or remitting factors. ADDITIONAL HISTORY OBTAINED: Per HPI Chronic Medical/Social Conditions Affecting Care: Per HPI PAST MEDICAL HISTORY:See Below PAST SURGICAL HISTORY:See Below FAMILY HISTORY:See Below SOCIAL HISTORY:See Below HOME MEDICATIONS:See Below ALLERGIES:See Below VITALS:See Below PHYSICAL EXAMINATION: GENERAL: Sitting up in bed, alert, well appearing, well nourished, no distress, non-toxic EYE EXAM: normal conjunctiva. OROPHARYNX: no exudate, no erythema, lips, buccal mucosa, and tongue normal and mucous membranes are moist NECK: supple, no nuchal rigidity, no adenopathy, non-tender LUNGS: Clear to auscultation. Normal chest wall mechanics HEART: no murmurs, S1 normal and S2 normal ABDOMEN: abdomen soft, non-tender, normo-active bowel sounds, no masses, no rebound or guarding. BACK: Back is symmetrical on inspection and there is no deformity, no midline tenderness, no CVA tenderness. SKIN: no rashes and no bruising UPPER EXTREMITIES: upper extremities are grossly normal. LOWER EXTREMITIES: No pitting edema. NEURO EXAM: Normal sensorium, cranial nerves II-XII grossly intact, normal speech, no gross weakness of arms, no gross weakness of legs. MEDICAL DECISION MAKING: Patient is a 24-year-old female who presents ER for the above-stated complaint. IV was established and blood work was obtained. Labs showed no significant leukocytosis or anemia. INR was unremarkable. BMP including LFTs and bilirubin and TSH were normal. UA was contaminated. Tox was negative for acetaminophen and salicylates. Was positive for benzodiazepine. Alcohol was negative. Discussed with poison control upon initial presentation and with the results of the labs and EKG. They note that was this occurred on Wednesday and no additional workup needs to be done. She can be admitted to psychiatry. Discussed the case with our psychiatric patient centered care specialist who evaluated the patient referred him to [facility]. She was accepted to [facility]. Consults/Care Managements Discussions: Per [facility] Triage Nursing notes reviewed. Limited review of prior medical records performed Vital Signs: reviewed and remarkable for no significant abnormalities Differential diagnosis: Mood disorder, infection, hypoglycemia, electrolyte abnormalities, cardiac sources, intracerebral event, toxicologic, trauma, neurologic, as well as other pathologies. ER treatment provided: See below Diagnostics interpreted by me include EKG and cardiac monitoring as listed below: -Cardiac Monitoring: An order was placed for continuous cardiac monitoring. The monitor shows a rate of 70 with sinus rhythm. -ECG: Sinus rhythm rate of 71 Normal axis No PVCs QTc 458 -Laboratory studies:Interpreted by me as stated above in MDM and shown below. Imaging studies: Xrays: As interpreted by me: None CTs show: none Procedures:none Critical Care: None Past Med/Surg History Problem List (Updated 11/05/24 @ 14:22 by Nba Beltrán DO) Mood disorder (Acute) Suicidal ideations (Acute) Asthma Family history of sudden in mother Syncope Impacted tooth Medical History Family history of early sudden Concussion Ataxia Head injury Achilles tendon injury large cut to the achilles requiring surgery; right side Vertigo Syncope and collapse Surgical History Hx of external ear surgery pinning / repositioning b/l ears Family History Mother , age 36; autopsy suggested arrhythmia as cause of Sudden cardiac Uncle , Maternal uncle; age 45; had pacemaker, then from arrhythmia? 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 other: graduated from [employer]; lives in [place]; [employer] 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 Feels Safe at Home: Yes Do you think of yourself as: straight/heterosexual Sexual Activity: has been sexually active within the last 12 months Gender Identity: Female Assistive Devices: None Allergies Allergies Allergy/AdvReac Type Severity Reaction Status Date / Time No Known Allergies Allergy Verified 09/10/23 19:10 Home Meds Home Medications Medication Instructions Recorded Confirmed No Known Home Medications 11/05/24 11/05/24 Results & Data (ED) Vital Signs Vital Signs - 24 hr 11/05/24 11:29 11/05/24 13:29 Temperature 36.6 C Temperature Source Temporal Artery Scan Pulse Rate 101 H Pulse Rate [Finger] 68 Respiratory Rate 18 16 Respiratory Effort / Characteristics Non-Labored Spontaneous Respiratory Depth Normal Respiratory Pattern Regular Blood Pressure 139/82 Blood Pressure [Right Arm] 110/70 Blood Pressure Mean 101 Blood Pressure Mean [Right Arm] 83 Blood Pressure Position Sitting Blood Pressure Position [Right Arm] Semi-fowlers Pulse Oximetry 96 95 Oxygen Delivery Method Room Air Room Air Sepsis Recent Fever Within 48 Hours No Sepsis New/Unexplained Change in Mental Status N/A Sepsis Action Taken by Nursing No Action Required Laboratory Data 11/05/24 12:02 11/05/24 12:02 Lab Results 11/05/24 11/05/24 11/05/24 Range/Units 11:39 11:41 12:02 WBC 7.75 (4.8-10.8) K/ul RBC 4.44 (4.20-5.40) M/uL Hgb 13.3 (12.0-16.0) g/dl Hct 39.7 (37.0-47.0) % MCV 89.4 (80.0-100.0) fL MCH 30.0 (25.0-34.0) pg MCHC 33.5 (32.0-36.0) g/dL RDW Std Deviation 40.5 (36.4-46.3) fL RDW Coeff of Evangelista 12.4 (11.5-14.5) % Plt Count 246 (130-400) K/uL MPV 9.5 (9.4-12.4) fL Immature Gran % (Auto) 0.1 % Neut % (Auto) 65.6 % Lymph % (Auto) 27.0 % [place] % (Auto) 6.5 % Eos % (Auto) 0.3 % Baso % (Auto) 0.5 % Neut # (Auto) 5.09 (1.40-6.50) K/uL Lymph # (Auto) 2.09 (1.20-3.40) K/uL [place] # (Auto) 0.50 (0.11-0.59) K/uL Eos # (Auto) 0.02 (0.00-0.50) K/uL Baso # (Auto) 0.04 (0.00-0.20) K/uL Immature Gran # (Auto) 0.01 (0.01-0.20) K/uL PT 11.4 (9.0-12.0) Seconds INR 1.1 (0.9-1.1) Sodium 140 (136-145) mmol/L Potassium 3.9 (3.5-5.1) mmol/L Chloride 107 (98-107) mmol/L Carbon Dioxide 25 (21-32) mmol/L Anion Gap 8 (3-11) BUN 16 (6-23) mg/dl Creatinine 0.88 (0.6-1.2) mg/dl Est Cr Clr Drug Dosing Not Reportable eGFR 92.89 BUN/Creatinine Ratio 18.2 (10-20) Glucose 80 (70-99(Fasting)) mg/dl Calcium 9.5 (8.6-10.3) mg/dl Total Bilirubin 0.7 (0.2-1.0) mg/dl AST 17 (13-39) U/L ALT 16 (7-52) U/L Alkaline Phosphatase 54 (34-104) U/L Total Protein 7.5 (6.0-8.3) gm/dl Albumin 4.7 (3.4-5.0) gm/dl Globulin 2.8 (2.5-4.0) gm/dl Albumin/Globulin Ratio 1.7 (0.9-2) TSH 1.941 (0.300-4.500) uIu/ml Urine Color Yellow Urine Appearance Cloudy A (Clear) Urine pH 5.5 (4.5-7.5) Ur Specific [place] 1.035 H (1.000-1.030) Urine Protein Trace H (Negative) Urine Glucose (UA) Negative (Negative) Urine Ketones 2+ H (Negative) Urine Blood 1+ H (Negative) Urine Nitrite Negative (Negative) Urine Bilirubin Negative (Negative) Urine Urobilinogen Negative (Negative) Ur Leukocyte Esterase Negative (Negative) Urine WBC (Auto) 0-5 (0-5) /hpf Urine RBC (Auto) 3-5 H (0-2) /hpf U Hyaline Cast (Auto) 0-2 (0-2) /lpf U Epithel Cells (Auto) 6-10 H (0-2) /hpf Urine Bacteria (Auto) None Seen (None Seen) Urine Test Negative (Negative) Urine Comment Salicylates < 3.0 L (3.0-30) mg/dl Urine Opiates Screen Neg (Neg) Ur Methadone, Qual Neg (Neg) Urine Fentanyl Screen Neg (Neg) Acetaminophen < 3 L (10-30) ug/ml Urine Barbiturates Neg (Neg) Ur Phencyclidine (PCP) Neg (Neg) U Amphetamin/Meth Scrn Neg (Neg) MDMA (Ecstasy) Screen Neg (Neg) U Benzodiazepines Scrn Pos H (Neg) Ur Cocaine Metabolite Neg (Neg) U Marijuana (THC) Screen Neg (Neg) Ethyl Alcohol mg/dL < 10.0 (<10.0) mg/dl SARS-CoV-2, RNA, NAAT NEGATIVE (NEGATIVE) Discharge Plan Visit Data Chief Complaint: Mental Health Evaluation Stated Complaint: CRISIS-MENTAL HEALTH ED Provider: Nba Beltrán Discharge Problem: Suicidal ideations, Mood disorder Patient Disposition: Admitted As Inpatient Condition: Fair Discharge Instructions Interventions: ED Discharge Assessment Last Done: 11/05/24 14:18 Forms Stand Alone Forms: My [facility] [email or web address], Suicide Prevention Resources Prescriptions Prescriptions: No Action No Known Home Medications Referrals Referrals: Eveline Morrison DO [Primary Care Provider] -
[2024-11-05 12:13] LABS: Appearance Urine Cloudy (Clear); Bacteria Urine Automated None Seen (None Seen); Cast Urine Automated 0-2 /lpf (0-2); Glucose Urine UA Negative (Negative); WBC Urine Automated 0-5 /hpf (0-5)
[2024-11-05 12:20] LABS: Hematocrit (blood only) 39.7 % (37.0-47.0); Hemoglobin 13.3 g/dl (12.0-16.0); Immature Granulocytes # (auto) 0.01 K/uL (0.01-0.20); Immature Granulocytes % (auto) 0.1 %; Mean Corpuscular Hemoglobin 30.0 pg (25.0-34.0); Mean Corpuscular Volume 89.4 fL (80.0-100.0); Platelet Count 246 K/uL (130-400); RDW Standard Deviation 40.5 fL (36.4-46.3); Red Blood Count 4.44 M/uL (4.20-5.40); White Blood Count 7.75 K/ul (4.8-10.8)
[2024-11-05 12:39] LABS: Alanine Aminotransferase 16 U/L (7-52); Albumin Globulin Ratio 1.7 (0.9-2); Alkaline Phosphatase 54 U/L (34-104); Anion Gap 8 (3-11); Bilirubin,Total 0.7 mg/dl (0.2-1.0); Blood Urea Nitrogen 16 mg/dl (6-23); Calcium 9.5 mg/dl (8.6-10.3); Carbon Dioxide 25 mmol/L (21-32); Chloride 107 mmol/L (98-107); Globulin 2.8 gm/dl (2.5-4.0); Glucose 80 mg/dl (70-99(Fasting)); Potassium 3.9 mmol/L (3.5-5.1); Sodium 140 mmol/L (136-145); Total Protein 7.5 gm/dl (6.0-8.3)
[2024-11-05 12:53] LABS: Amphetamines+Metham, Urine Neg (Neg); MDMA (Ecstacy), Urine Neg (Neg); Marijuana, Urine Neg (Neg)
[2024-11-05 12:53] LABS: Thyroid Stimulating Hormone 1.941 uIu/ml (0.300-4.500)
[2024-11-05 13:04] LABS: Acetaminophen < 3 ug/ml (10-30); Salicylate < 3.0 mg/dl (3.0-30)
[2024-11-05 13:06] LABS: INR 1.1 (0.9-1.1); Prothrombin Time 11.4 Seconds (9.0-12.0)
[2024-11-05] MEDS ORDERED: SODIUM CHLORIDE 0.65% NA SOLN 45 ML (OCEAN) PRN (14:06)
[2024-11-05] MEDS ORDERED: ALUMINUM/MAGNESIUM SUSP 30 ML UDC PO PRN (14:06)
[2024-11-05] MEDS ORDERED: ACETAMINOPHEN 325 MG TAB PO PRN (14:06)
[2024-11-05] MEDS ORDERED: MAGNESIUM HYDROXIDE SUSP 30 ML UDC PO PRN (14:06)
[2024-11-05] MEDS ORDERED: BISMUTH SUBSALICYLATE 262 MG CHEW PO PRN (14:06)
[2024-11-05 14:52] VITALS: O2SAT 98
[2024-11-06 06:26] VITALS: RESP 16
--- NOTE | 2024-11-06 08:20 | Electrocardiogram Report ---
Test Reason : Blood Pressure : */* mmHG Vent. Rate : 71 BPM Atrial Rate : 71 BPM P-R Int : 132 ms QRS Dur : 82 ms QT Int : 422 ms P-R-T Axes : 74 15 26 degrees QTcB Int : 458 ms Normal sinus rhythm with sinus arrhythmia Normal ECG When compared with ECG of 05-Oct-2023 19:38, Vent. rate has decreased by 56 bpm Confirmed by Marta Fernandez (Yasmeen) on 11/06/2024 8:20:28 AM Referred By: REFERRED SELF Confirmed By: Marta Fernandez
--- NOTE | 2024-11-06 09:14 | Psychiatric Progress Note ---
Date of Service November 06, 2024 Impression / Recommendations Protective Factors Assessment Employed: Yes Interval History Chief Complaint "[]". Review of Systems Sleep Information Total Hours of Sleep: 6.5 Meal Information Percent Meal Consumed - Breakfast: 100 Percent Meal Consumed - Dinner: 10 Subjective Subjective Patient was seen & assessed and interval progress reviewed with [treatment team] [nursing and social work] Physical Exam Vital Signs (Past 24 Hours) Last Vital Signs Temp 36.8 C 11/06/24 06:24 Pulse 96 H 11/06/24 06:26 Resp 16 11/06/24 06:24 BP 117/74 11/06/24 06:26 Pulse Ox 98 11/05/24 14:41 O2 Del Method Room Air 11/05/24 14:41 Results & Data ([facility]) Laboratory Results Laboratory Results - last 24 hr 11/05/24 11/05/24 11/05/24 11:39 11:41 12:02 WBC 7.75 RBC 4.44 Hgb 13.3 Hct 39.7 MCV 89.4 MCH 30.0 MCHC 33.5 RDW Std Deviation 40.5 RDW Coeff of Evangelista 12.4 Plt Count 246 MPV 9.5 Immature Gran % (Auto) 0.1 Neut % (Auto) 65.6 Lymph % (Auto) 27.0 [place] % (Auto) 6.5 Eos % (Auto) 0.3 Baso % (Auto) 0.5 Neut # (Auto) 5.09 Lymph # (Auto) 2.09 [place] # (Auto) 0.50 Eos # (Auto) 0.02 Baso # (Auto) 0.04 Immature Gran # (Auto) 0.01 PT 11.4 INR 1.1 Sodium 140 Potassium 3.9 Chloride 107 Carbon Dioxide 25 Anion Gap 8 BUN 16 Creatinine 0.88 Est Cr Clr Drug Dosing Not Reportable eGFR 92.89 BUN/Creatinine Ratio 18.2 Glucose 80 Calcium 9.5 Total Bilirubin 0.7 AST 17 ALT 16 Alkaline Phosphatase 54 Total Protein 7.5 Albumin 4.7 Globulin 2.8 Albumin/Globulin Ratio 1.7 TSH 1.941 Urine Color Yellow Urine Appearance Cloudy A Urine pH 5.5 Ur Specific [place] 1.035 H Urine Protein Trace H Urine Glucose (UA) Negative Urine Ketones 2+ H Urine Blood 1+ H Urine Nitrite Negative Urine Bilirubin Negative Urine Urobilinogen Negative Ur Leukocyte Esterase Negative Urine WBC (Auto) 0-5 Urine RBC (Auto) 3-5 H U Hyaline Cast (Auto) 0-2 U Epithel Cells (Auto) 6-10 H Urine Bacteria (Auto) None Seen Urine Test Negative Urine Comment Salicylates < 3.0 L Urine Opiates Screen Neg Ur Methadone, Qual Neg Urine Fentanyl Screen Neg Acetaminophen < 3 L Urine Barbiturates Neg Ur Phencyclidine (PCP) Neg U Amphetamin/Meth Scrn Neg MDMA (Ecstasy) Screen Neg U OH-Alprazolam Confrm Pending U Benzodiazepines Scrn Pos H 7-Amino Clonazepam Pending Ur Nordiazepam Confirm Pending U OH-ethylflurazepam Pending U Lorazepam Cnf GC/MS Pending U Oxazepam Confm GC/MS Pending Ur Temazepam Confirm Pending U OH-Triazolam Confirm Pending U OH-Midazolam Confirm Pending Ur Cocaine Metabolite Neg U Marijuana (THC) Screen Neg Drug Screen Comment Pending Ethyl Alcohol mg/dL < 10.0 SARS-CoV-2, RNA, NAAT NEGATIVE Current Inpatient Medications Current Inpatient Medications: Current Inpatient Medications Acetaminophen (Acetaminophen 325 Mg Tab) 650 mg PO Q4H PRN PRN Reason: Headache or Minor Fever Stop: 12/05/24 14:05 Al Hydrox/Mg Hydrox/Simethicone (Aluminum/Magnesium Susp 30 Ml Udc) 30 ml PO Q4H PRN PRN Reason: GI Upset Stop: 12/05/24 14:05 Bismuth Subsalicylate (Bismuth Subsalicylate 262 Mg Chew) 2 tab PO Q30M PRN PRN Reason: Loose Stool/Diarrhea Stop: 12/05/24 14:05 Hydroxyzine HCl (Hydroxyzine Hcl 25 Mg Tab) 50 mg PO HSZ PRN PRN Reason: Insomnia Stop: 12/05/24 14:05 Hydroxyzine HCl (Hydroxyzine Hcl 25 Mg Tab) 25 mg PO Q4H PRN PRN Reason: Anxiety Stop: 12/05/24 14:05 Last Admin: 11/05/24 17:47 Dose: 25 mg Magnesium Hydroxide (Magnesium Hydroxide Susp 30 Ml Udc) 30 ml PO DAILY PRN PRN Reason: Constipation Stop: 12/05/24 14:05 Sodium Chloride (Sodium Chloride 0.65% Na Soln 45 Ml ([place])) 1 - 2 sprays NA PRN PRN PRN Reason: Nasal Dryness/Congestion Stop: 12/05/24 14:05 Mental Health & Subst Abuse Tx Therapist Name of Therapist: N/A [employer] [facility] Consultant Name of [employer] [facility] Consultant: N/A
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
--- NOTE | 2024-11-06 09:58 | History & Physical ---
Date of Service November 06, 2024 Impression / Recommendations Risk Factors Assessment Do You Have Access To A Gun?: No (n/a) Protective Factors Assessment Employed: Yes Psychiatric History Identifying Data DONAVAN STEVENSON is a 24-year-old F who currently lives in [] [alone] with [], has a history of [], and was admitted on 11/05/24 14:06 on a [201 voluntary] [3 02 involuntary] commitment for []. Chief Complaint "[]". Past Psychiatric History Current Psychiatric Diagnosis: n/a Do You Have Access To A Gun?: No (n/a) History of Previous Suicide Attempt: No Allergies Allergy/AdvReac Type Severity Reaction Status Date / Time No Known Allergies Allergy Verified 09/10/23 19:10 Home Medications Medication Instructions Recorded Confirmed Type No Known Home Medications 11/05/24 11/05/24 History Family History Family History of: Doesn't Know Family Mental Health History Comment: n/a Alcohol History Hx of Alcohol Use Over the Past 12 Months: Yes (drinks socially) AUDIT Total Score: 1 Smoking Use Have You Smoked or Used Tobacco Products in the Last 30 Days: No Smoking Status: Never smoker Substance History Hx of Prescription Med Misuse Over the Past 12 Months: No Hx of Over the Counter Med Misuse Over the Past 12 Months: No Hx of Inhalent Misuse Over the Past 12 Months: No Hx of Organic Substance Use Over the Past 12 Months: No Hx of Illegal Substances/Street Drug Use Over Past 12 Months: No Problems as a Result of Past Substance Use: None Identified Personal History Living Arrangements: Home Living Arrangements Comments: Moved in with a friend after recfent breakup Highest Grade Completed: College Highest Grade Completed Comment: Bachelors Degree Marital Status: Single Number Of Children: 0 Beliefs That Will Affect Care: None Legal Problems Comment: n/a Patient History Medical History Family history of early sudden Concussion Ataxia Head injury Achilles tendon injury large cut to the achilles requiring surgery; right side Vertigo Syncope and collapse Surgical History Hx of external ear surgery pinning / repositioning b/l ears Family History Mother , age 36; autopsy suggested arrhythmia as cause of Sudden cardiac Uncle , Maternal uncle; age 45; had pacemaker, then from arrhythmia? 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 Feels Safe at Home: Yes Do you think of yourself as: straight/heterosexual Sexual Activity: has been sexually active within the last 12 months Gender Identity: Female Assistive Devices: None Physical Exam Vital Signs (Past 24 Hours): Last Vital Signs Temp 36.8 C 11/06/24 06:24 Pulse 96 H 11/06/24 06:26 Resp 16 11/06/24 06:24 BP 117/74 11/06/24 06:26 Pulse Ox 98 11/05/24 14:41 O2 Del Method Room Air 11/05/24 14:41 Results & Data ([facility]) Laboratory Results Laboratory Results - last 24 hr 11/05/24 11/05/24 11/05/24 11:39 11:41 12:02 WBC 7.75 RBC 4.44 Hgb 13.3 Hct 39.7 MCV 89.4 MCH 30.0 MCHC 33.5 RDW Std Deviation 40.5 RDW Coeff of Evangelista 12.4 Plt Count 246 MPV 9.5 Immature Gran % (Auto) 0.1 Neut % (Auto) 65.6 Lymph % (Auto) 27.0 [place] % (Auto) 6.5 Eos % (Auto) 0.3 Baso % (Auto) 0.5 Neut # (Auto) 5.09 Lymph # (Auto) 2.09 [place] # (Auto) 0.50 Eos # (Auto) 0.02 Baso # (Auto) 0.04 Immature Gran # (Auto) 0.01 PT 11.4 INR 1.1 Sodium 140 Potassium 3.9 Chloride 107 Carbon Dioxide 25 Anion Gap 8 BUN 16 Creatinine 0.88 Est Cr Clr Drug Dosing Not Reportable eGFR 92.89 BUN/Creatinine Ratio 18.2 Glucose 80 Calcium 9.5 Total Bilirubin 0.7 AST 17 ALT 16 Alkaline Phosphatase 54 Total Protein 7.5 Albumin 4.7 Globulin 2.8 Albumin/Globulin Ratio 1.7 TSH 1.941 Urine Color Yellow Urine Appearance Cloudy A Urine pH 5.5 Ur Specific [place] 1.035 H Urine Protein Trace H Urine Glucose (UA) Negative Urine Ketones 2+ H Urine Blood 1+ H Urine Nitrite Negative Urine Bilirubin Negative Urine Urobilinogen Negative Ur Leukocyte Esterase Negative Urine WBC (Auto) 0-5 Urine RBC (Auto) 3-5 H U Hyaline Cast (Auto) 0-2 U Epithel Cells (Auto) 6-10 H Urine Bacteria (Auto) None Seen Urine Test Negative Urine Comment Salicylates < 3.0 L Urine Opiates Screen Neg Ur Methadone, Qual Neg Urine Fentanyl Screen Neg Acetaminophen < 3 L Urine Barbiturates Neg Ur Phencyclidine (PCP) Neg U Amphetamin/Meth Scrn Neg MDMA (Ecstasy) Screen Neg U OH-Alprazolam Confrm Pending U Benzodiazepines Scrn Pos H 7-Amino Clonazepam Pending Ur Nordiazepam Confirm Pending U OH-ethylflurazepam Pending U Lorazepam Cnf GC/MS Pending U Oxazepam Confm GC/MS Pending Ur Temazepam Confirm Pending U OH-Triazolam Confirm Pending U OH-Midazolam Confirm Pending Ur Cocaine Metabolite Neg U Marijuana (THC) Screen Neg Drug Screen Comment Pending Ethyl Alcohol mg/dL < 10.0 SARS-CoV-2, RNA, NAAT NEGATIVE Current Inpatient Medications Current Inpatient Medications: Current Inpatient Medications Acetaminophen (Acetaminophen 325 Mg Tab) 650 mg PO Q4H PRN PRN Reason: Headache or Minor Fever Stop: 12/05/24 14:05 Al Hydrox/Mg Hydrox/Simethicone (Aluminum/Magnesium Susp 30 Ml Udc) 30 ml PO Q4H PRN PRN Reason: GI Upset Stop: 12/05/24 14:05 Bismuth Subsalicylate (Bismuth Subsalicylate 262 Mg Chew) 2 tab PO Q30M PRN PRN Reason: Loose Stool/Diarrhea Stop: 12/05/24 14:05 Hydroxyzine HCl (Hydroxyzine Hcl 25 Mg Tab) 50 mg PO HSZ PRN PRN Reason: Insomnia Stop: 12/05/24 14:05 Hydroxyzine HCl (Hydroxyzine Hcl 25 Mg Tab) 25 mg PO Q4H PRN PRN Reason: Anxiety Stop: 12/05/24 14:05 Last Admin: 11/05/24 17:47 Dose: 25 mg Magnesium Hydroxide (Magnesium Hydroxide Susp 30 Ml Udc) 30 ml PO DAILY PRN PRN Reason: Constipation Stop: 12/05/24 14:05 Sodium Chloride (Sodium Chloride 0.65% Na Soln 45 Ml ([place])) 1 - 2 sprays NA PRN PRN PRN Reason: Nasal Dryness/Congestion Stop: 12/05/24 14:05
--- NOTE | 2024-11-06 13:23 | Psychiatric Progress Note ---
Date of Service November 07, 2024 Impression / Recommendations Impression DONAVAN STEVENSON is a 24-year-old F who currently homeless, has a history of anxiety and depression, and was admitted on 11/05/24 14:06 on a 201 voluntary commitment for concern for of suicidal ideation and attempt. She presented to the ER as she has just been feeling helpless. She admits to chronic passive suicidal ideations. Patient exhibits borderline PD traits including history of self-harm and developed acute symptoms of depression and anxiety triggered by multiple stressors. She has limited social support and had been off medication for an extended period of time. Started Lexapro (the medication she had successfully tried in the past appears to be tolerating the medication well.). Patient will benefit from a slightly higher dose. Overall, I spent a total of 30 minutes with this case, including review of chart,direct evaluation of the patient,counseling the patient,ordering medication,coordination with nursing,risk assessment, and documentation. (1) Suicidal ideations: (2) Mood disorder: (3) Syncope: -Not present on admission. Implanted nurse monitoring in place. (4) Generalized anxiety disorder: Plan 11/07/2024: -Increase Lexapro to 10 mg po qhs -Continued inpatient hospitalization is medically necessary for ongoing monitoring and safety. 11/06/2024: The patient was admitted to the [facility] ([facility] mental health unit) on q15 min checks (behavioral with suicide precautions) for safety. The patient will participate in group, recreational, and milieu therapies and will be offered additional individual and family sessions as clinically appropriate. MEDICATIONS: 1. Start Lexapro 5 mg p.o. daily. Will titrate up if well-tolerated as clinically indicated. 2. 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 I still have a fair amount of anxiety but the sadness went away." Review of Systems Sleep Information Total Hours of Sleep: 6.5 Meal Information Percent Meal Consumed - Breakfast: 100 Percent Meal Consumed - Dinner: 10 Subjective Subjective Patient was seen & assessed and interval progress reviewed with nursing and social work. Patient According to staff, patient rated her mood at 5/10. Slept 8 hours. She signed a 72 hour request for discharge yesterday. Patient presented calm and cooperative. She was forthcoming with information. Patient complained about moderate to severe anxiety. She indicated her sadness seems to be resolving. Denied suicidal ideation. Patient reported that she has tolerated Lexapro well and he is willing to increase the dose to target the residual anxiety symptoms. Patient stated that she is retracting from the 72- hour request in order to continue working on her treatment plan. She appeared future oriented; wants to be discharged to a friend's house and is interested in connecting with services in the community. Patient shared concerns about changes in mood that appeared to correlate with her menstrual cycle we discussed the use of Lexapro in conditions related to PMDD and recommended the patient to continue monitoring. Physical Exam Mental Examination A physical exam was performed in the ER prior to admission to the unit by Nba Beltrán DO. I accept that physical as correct/medical clearance for the inpatient physical exam. Psychiatric Orientation: alert and oriented x 3 Apperance: appropriately dressed Eye Contact: good eye contact Motor Behavior: no abnormal motor movements Speech: normal rate/rhythm/volume of speech Affect: + anxious affect Mood: + anxious mood Thought Process: goal directed thought process Thought Content: no delusions and no hopelessness Suicidal Thoughts: denies suicidal thoughts Homicidal Thoughts: denies homicidal thoughts Hallucinations: no auditory hallucinations and no visual hallucinations Cognition: recent memory grossly intact and remote memory grossly intact Estimated Intelligence: average estimated intelligence Insight: good insight Judgment: + fair judgement Vital Signs (Past 24 Hours) Last Vital Signs Temp 36.8 C 11/06/24 06:24 Pulse 96 H 11/06/24 06:26 Resp 16 11/06/24 06:24 BP 117/74 11/06/24 06:26 Pulse Ox 98 11/05/24 14:41 O2 Del Method Room Air 11/05/24 14:41 Results & Data ([facility]) Current Inpatient Medications Current Inpatient Medications: Current Inpatient Medications Acetaminophen (Acetaminophen 325 Mg Tab) 650 mg PO Q4H PRN PRN Reason: Headache or Minor Fever Stop: 12/05/24 14:05 Al Hydrox/Mg Hydrox/Simethicone (Aluminum/Magnesium Susp 30 Ml Udc) 30 ml PO Q 4H PRN PRN Reason: GI Upset Stop: 12/05/24 14:05 Bismuth Subsalicylate (Bismuth Subsalicylate 262 Mg Chew) 2 tab PO Q30M PRN PRN Reason: Loose Stool/Diarrhea Stop: 12/05/24 14:05 Escitalopram Oxalate (Escitalopram Oxalate 10 Mg Tab) 5 mg PO HS KENDRA Stop: 12/06/24 21:59 Hydroxyzine HCl (Hydroxyzine Hcl 25 Mg Tab) 50 mg PO HSZ PRN PRN Reason: Insomnia Stop: 12/05/24 14:05 Hydroxyzine HCl (Hydroxyzine Hcl 25 Mg Tab) 25 mg PO Q4H PRN PRN Reason: Anxiety Stop: 12/05/24 14:05 Last Admin: 11/05/24 17:47 Dose: 25 mg Magnesium Hydroxide (Magnesium Hydroxide Susp 30 Ml Udc) 30 ml PO DAILY PRN PRN Reason: Constipation Stop: 12/05/24 14:05 Sodium Chloride (Sodium Chloride 0.65% Na Soln 45 Ml ([place])) 1 - 2 sprays NA PRN PRN PRN Reason: Nasal Dryness/Congestion Stop: 12/05/24 14:05 Valacyclovir HCl (Valacyclovir Hcl 500 Mg Tablet) 500 mg PO BID KENDRA Stop: 11/13/24 12:59 Last Admin: 11/06/24 13:06 Dose: 500 mg Mental Health & Subst Abuse Tx Psychiatrist Date Of Appointment With Psychiatric Provider: n/a Time of Appointment with Psychiatrist: n/a Therapist Name of Therapist: n/a Date of Therapist Appointment: n/a Time of Therapist Appointment: n/a Schedule Analyst Name of Schedule Analyst: n/a Time of Appointment with Schedule Analyst: n/a Post Discharge Appointments Primary Care Physician Name Of Family Doctor/PCP: n/a Date of Future Appointment with PCP: n/a Time of Appointment with PCP: n/a
[2024-11-06] MEDS: ESCITALOPRAM OXALATE 10 MG TAB PO SCH (20:52)
[2024-11-07] MEDS: COUGH DROP (SUGAR FREE) LOZ 24 LOZ/1 BOX BUCCAL ONE (10:50)
[2024-11-07] MEDS: ESCITALOPRAM OXALATE 10 MG TAB PO SCH (20:20)
[2024-11-08 06:35] VITALS: TEMP 98.1
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
[2024-11-08 10:41] VITALS: BP 116/74; PULSE 105
--- NOTE | 2024-11-08 13:18 | Electrocardiogram Report ---
Test Reason : Blood Pressure : */* mmHG Vent. Rate : 90 BPM Atrial Rate : 90 BPM P-R Int : 124 ms QRS Dur : 82 ms QT Int : 378 ms P-R-T Axes : 77 15 40 degrees QTcB Int : 462 ms Normal sinus rhythm Normal ECG When compared with ECG of 05-Nov-2024 12:13, No significant change was found Confirmed by Mele Snow ([id number]) on 11/08/2024 1:18:29 PM Referred By: REFERRED SELF Confirmed By: Mele Snow
[2024-11-09 10:20] LABS: 7-Aminoclonaz, Confirm NEGATIVE ng/mL (<25); Hydro-Alp Ur, GC/MS NEGATIVE ng/mL (<25); Hydroxyethylflurazepam, Conf NEGATIVE ng/mL (<50); Hydroxymidazolam Ur, GC/MS NEGATIVE ng/mL (<50); Lorazepam, Ur GC/MS NEGATIVE ng/mL (<50); Nordiazepam, Confirm 81 ng/mL (<50); Oxazepam Ur, GC/MS NEGATIVE ng/mL (<50); Temazepam, Confirm 137 ng/mL (<50)
== END 2024-11-08 11:34 | disposition home or self-care (01) | DRG 885 ==
LOC: ED 11:23 → 3S 14:06